=== PATIENT | male | born 1930 | race Asian ===

== ENCOUNTER 2019-08-21 13:28 | Inpatient (IN) | payer MEDICARE, MEDICAID ==
[~2019-08-21] VITALS: Ht 175.3 cm; Wt 72.6 kg
[2019-08-21] MEDS ORDERED: Solu-MEDROL 125mg Inj IVP ONE (13:30)
[2019-08-21] MEDS ORDERED: Albuterol 90mcg Inhaler 8gm INH ONE (13:30)
[2019-08-21] MEDS ORDERED: METFORMIN HCL500 M1 ORAL (13:31)
[2019-08-21] MEDS ORDERED: FUROSEMIDE20 M1 ORAL (13:31)
[2019-08-21] MEDS ORDERED: GABAPENTIN100 MG ORAL (13:31)
[2019-08-21] MEDS ORDERED: ASPIR 8181 MG ORAL (13:31)
[2019-08-21 13:45] VITALS: BP 108/68
--- NOTE | 2019-08-21 13:45 | NUR ---
ED Nurse Note: Patient BIBA by KELLY from home d/t shortness of breath that started today. Patient has home health nurses that called EMS d/t O2 sat in low to mid 80's at home. Per EMS, patient O2 low to mid 90's after placing on non-rebreather at 15 L. Patient AxO x 4, but drowsy. Skin intact. Patient on the radio electronics officer, bed in lowest position.
--- NOTE | 2019-08-21 14:29 | NUR ---
CELL [phone] JUAN MARKS WOULD LIKE UPDATES
--- NOTE | 2019-08-21 14:45 | NUR ---
ED Nurse Note: Rapid COVID-19 swab obtained right nare, sent to lab. Urine collected by straight cath, sent to lab.
--- NOTE | 2019-08-21 14:55 | NUR ---
ED Nurse Note: Blood obtained and sent to lab.
[2019-08-21 15:09] LABS: HEMOGLOBIN 13.3 G/DL (14.2-18.0); MEAN CORPUSCULAR VOLUME 121 FL (80-99); PLATELET COUNT 108 K/UL (150-450); RED BLOOD COUNT 3.64 M/UL (4.70-6.10); RED CELL DISTRIBUTION WIDTH 15.5 % (11.6-14.8)
[2019-08-21 15:09] LABS: APPEARANCE,URINE CLEAR; BILIRUBIN, URINE NEGATIVE (NEGATIVE); GLUCOSE, URINE (UA) NEGATIVE (NEGATIVE); KETONES,URINE 1+ (NEGATIVE); LEUKOCYTE ESTERASE ,URINE 1+ (NEGATIVE); NITRITE,URINE NEGATIVE (NEGATIVE); PH,URINE 5 (4.5-8.0); PROTEIN,URINE 2+ (NEGATIVE); UROBILINOGEN,URINE 8 MG/DL (0.0-1.0)
[2019-08-21 15:14] LABS: COLOR,URINE AMBER
[2019-08-21 15:18] LABS: ANION GAP 7 mmol/L (5-15); BLOOD UREA NITROGEN 24 mg/dL (7-18); CALCIUM 8.3 MG/DL (8.5-10.1); CARBON DIOXIDE 29 MMOL/L (21-32); CHLORIDE 110 MMOL/L (98-107); CREATININE 1.2 MG/DL (0.55-1.30); POTASSIUM 3.9 MMOL/L (3.5-5.1); SODIUM 146 MMOL/L (136-145)
[2019-08-21 15:24] LABS: INR 1.2 (0.9-1.1)
[2019-08-21 15:28] LABS: ALANINE AMINOTRANSFERASE 20 U/L (12-78); ALBUMIN 3.2 G/DL (3.4-5.0); ALKALINE PHOSPHATASE 78 U/L (46-116); ASPARTATE AMINO TRANSFERASE 23 U/L (15-37); BILIRUBIN,TOTAL 0.8 MG/DL (0.2-1.0); CREATINE KINASE 76 U/L (26-308); PHOSPHORUS 3.8 MG/DL (2.5-4.9)
[2019-08-21] MEDS ORDERED: Piperacillin/Tazobactam 3.375 GM in NS 110 ML IVPB ONE (15:30)
[2019-08-21] MEDS ORDERED: Azithromycin 500 MG in NS 275 ML IV ONE (15:30)
[2019-08-21] MEDS: Albuterol ud Inhalation HHN SCH (15:43)
[2019-08-21] MEDS: Ipratropium 0.02% Inh Soln 2.5ml UD HHN SCH (15:43)
[2019-08-21 15:48] VITALS: BP 104/77
--- NOTE | 2019-08-21 16:08 | NUR ---
ED Nurse Note: Patient resting in bed, no s/s of acute distress. Patient tolerating breathing treatment well.
--- NOTE | 2019-08-21 16:09 | Cardiac Electrophysiology PN ---
Subjective Subjective [id number] Objective Last 24 Hour Vital Signs Date Time Temp Pulse Resp B/P (MAP) Pulse Ox O2 Delivery O2 Flow Rate FiO2 08/21/19 15:48 97.6 78 21 104/77 98 Non-Rebreather 15.0 08/21/19 13:45 98.1 76 20 108/68 94 Non-Rebreather 15.0 08/21/19 13:45 74 20 Non-Rebreather 15.0 08/21/19 13:27 74 20 98/65 (76) 94 Non-Rebreather 15.0 Laboratory Tests Test 08/21/19 13:42 08/21/19 14:45 08/21/19 14:50 Arterial Blood pH 7.333 (7.350-7.450) Arterial Blood Partial Pressure CO2 53.6 mmHg (35.0-45.0) H Arterial Blood Partial Pressure O2 183.5 mmHg (75.0-100.0) H Arterial Blood HCO3 27.8 mmol/L (22.0-26.0) H Arterial Blood Oxygen Saturation 98.6 % (95-100) Arterial Blood Base Excess 1.0 (-2-2) Dmitry Test Positive Urine Color Sisi Urine Appearance Clear Urine pH 5 (4.5-8.0) Urine Specific [place] 1.025 (1.005-1.035) Urine Protein 2+ (NEGATIVE) H Urine Glucose (UA) Negative (NEGATIVE) Urine Ketones 1+ (NEGATIVE) H Urine Blood Negative (NEGATIVE) Urine Nitrite Negative (NEGATIVE) Urine Bilirubin Negative (NEGATIVE) Urine Ictotest Negative (NEGATIVE) Urine Urobilinogen 8 MG/DL (0.0-1.0) H Urine Leukocyte Esterase 1+ (NEGATIVE) H Urine RBC 0 /HPF (0 - 0) Urine WBC 0-2 /HPF (0 - 0) Urine Squamous Epithelial Cells None /LPF (NONE/OCC) Urine Bacteria Occasional /HPF (NONE) White Blood Count 6.0 K/UL (4.8-10.8) Red Blood Count 3.64 M/UL (4.70-6.10) L Hemoglobin 13.3 G/DL (14.2-18.0) L Hematocrit 44.0 % (42.0-52.0) Mean Corpuscular Volume 121 FL (80-99) H Mean Corpuscular Hemoglobin 36.7 PG (27.0-31.0) H Mean Corpuscular Hemoglobin Concent 30.3 G/DL (32.0-36.0) L Red Cell Distribution Width 15.5 % (11.6-14.8) H Platelet Count 108 K/UL (150-450) L Mean Platelet Volume 11.6 FL (6.5-10.1) H Neutrophils (%) (Auto) % (45.0-75.0) Lymphocytes (%) (Auto) % (20.0-45.0) Monocytes (%) (Auto) % (1.0-10.0) Eosinophils (%) (Auto) % (0.0-3.0) Basophils (%) (Auto) % (0.0-2.0) Neutrophils % (Manual) Pending Lymphocytes % (Manual) Pending Platelet Estimate Pending Platelet Morphology Pending Prothrombin Time 12.9 SEC (9.30-11.50) H Prothromb Time International Ratio 1.2 (0.9-1.1) H Activated Partial Thromboplast Time 26 SEC (23-33) Sodium Level 146 MMOL/L (136-145) H Potassium Level 3.9 MMOL/L (3.5-5.1) Chloride Level 110 MMOL/L (98-107) H Carbon Dioxide Level 29 MMOL/L (21-32) Anion Gap 7 mmol/L (5-15) Blood Urea Nitrogen 24 mg/dL (7-18) H Creatinine 1.2 MG/DL (0.55-1.30) Estimat Glomerular Filtration Rate 57.0 mL/min (>60) Glucose Level 113 MG/DL (74-106) H Lactic Acid Level 1.30 mmol/L (0.4-2.0) Calcium Level 8.3 MG/DL (8.5-10.1) L Phosphorus Level 3.8 MG/DL (2.5-4.9) Magnesium Level 2.2 MG/DL (1.8-2.4) Total Bilirubin 0.8 MG/DL (0.2-1.0) Aspartate Amino Transf (AST/SGOT) 23 U/L (15-37) Alanine Aminotransferase (ALT/SGPT) 20 U/L (12-78) Alkaline Phosphatase 78 U/L (46-116) Total Creatine Kinase 76 U/L (26-308) Troponin I 0.378 ng/mL (0.000-0.056) Pro-B-Type Natriuretic Peptide 40327 pg/mL (0-125) H Total Protein 6.5 G/DL (6.4-8.2) Albumin 3.2 G/DL (3.4-5.0) L Globulin 3.3 g/dL Albumin/Globulin Ratio 1.0 (1.0-2.7) Microbiology Date/Time Source Procedure Growth Status 08/21/19 14:10 Nasopharynx SARS-CoV-2 RdRp Gene Assay - Final Complete Juan Montes De Oca MD Aug 21, 2019 16:09
--- NOTE | 2019-08-21 16:19 | NUR ---
ED Nurse Note: Patient O2 fluctuating between high 80's and high 70's on non-rebreather mask at 15 L. RT notified to place patient on BiPAP per Dr. Hernandez. Patient BP 92/62, per Dr. Hernandez, ok to hold Lasix for now.
--- NOTE | 2019-08-21 16:50 | NUR ---
ED Nurse Note: Per Dr. Hernandez, defer giving Lasix. Patient O2 sat mid to high 80's on BiPAP, ERMD aware. No s/s of acute distress, breathing even and unlabored. Will continue to monitor closely.
[2019-08-21 17:07] VITALS: BP 106/71
--- NOTE | 2019-08-21 17:31 | NUR ---
ED Nurse Note: RT at bedside obtaining repeat ABG
--- NOTE | 2019-08-21 17:46 | Emergency Room Report ---
History of Present Illness General Chief Complaint: Dyspnea/Respdistress Source: Patient, EMS Present Illness HPI 88-year-old male presents for shortness of breath. Brought in by EMS from home. O2 sats in the 80s. History of COPD. Patient appears lethargic. Unable to provide any additional history at this time. No reported fevers or chills. No sick contacts or recent travel. No other aggravating relieving factors. No other associated symptoms Allergies: Coded Allergies: No Known Allergies (Unverified , 08/21/19) COVID-19 Screening Contact w/high risk pt: No Recent Travel to affected area: No Experienced COVID-19 symptoms?: Yes COVID-19 symptoms experienced: Shortness of Breath COVID-19 Testing performed OWNER/PHOTOGRAPHER: No Patient History Past Medical History: DM, CHF, COPD Past Surgical History: none Pertinent Family History: none Social History: Denies: smoking, alcohol use, drug use Immunizations: UTD Reviewed Nursing Documentation: PMH: Agreed; PSxH: Agreed Nursing Documentation-PMH Past Medical History: No History, Except For Hx Cardiac Problems: Yes - CHF Hx COPD: Yes Hx Diabetes: Yes Hx Cancer: Yes - LUNG Review of Systems All Other Systems: limited Physical Exam Vital Signs Date Time Temp Pulse Resp B/P (MAP) Pulse Ox O2 Delivery O2 Flow Rate FiO2 08/21/19 13:27 74 20 98/65 (76) 94 Non-Rebreather 15.0 08/21/19 13:45 98.1 08/21/19 16:24 100 Sp02 EP Interpretation: reviewed, normal General Appearance: no apparent distress, alert, GCS 15, non-toxic, lethargic Head: normocephalic, atraumatic Eyes: bilateral eye normal inspection, bilateral eye PERRL ENT: hearing grossly normal, normal pharynx, no angioedema, normal voice Neck: full range of motion, supple/symm/no masses Respiratory: chest non-tender, crackles, speaking full sentences Cardiovascular #1: regular rate, rhythm, no edema Cardiovascular #2: 2+ carotid (R), 2+ carotid (L), 2+ radial (R), 2+ radial (L) , 2+ dorsalis pedis (R), 2+ dorsalis pedis (L) Gastrointestinal: normal bowel sounds, non tender, soft, non-distended, no guarding, no rebound Rectal: deferred Genitourinary: normal inspection, no CVA tenderness Musculoskeletal: back normal, normal range of motion, gait/station normal, non- tender Neurologic: other - Lethargic Psychiatric: other - Lethargic Reflexes: 3+ bicep (R), 3+ bicep (L), 3+ tricep (R), 3+ tricep (L), 3+ knee (R) , 3+ knee (L) Skin: other - See nursing skin notes Lymphatic: no adenopathy Procedures Critical Care Time Critical Care Time i. I feel this is a highly complex case requiring extensive working including EKG/Rhythm strip, Xray/CT/US, Blood/urine lab work, repeat exams while in ED, and administration of strong opiates/narcotics for pain control, admission to hospital or close patient follow up. Total time: 60 min bedside evaluation and treatment excludes procedures (EKG). Reason for critical care: Respiratory distress Possible complications: hypotension, hypertension, TX, shock, arrhythmias, metabolic acidosis, end organ damage, respiratory failure. Interventions: Labs, EKG, chest x-ray, nebs, ABG, BiPAP, discussion with DPOA, antibiotics Course: Patient presenting with hypoxia. History of COPD and CHF. O2 sats low. Rapid COVID negative. Started on nebs. Chest x-ray confirms left-sided infiltrate. O2 sats low. Started on BiPAP. ABG shows worsening acidosis with slowly rising CO2. Consideration for intubation. Discussed with designated power of civil litigation attorney. Patient has advanced directive stating he refuses mechanical ventilation and artificial nutrition. POA signed POLST. Given antibiotics. Given Lasix Consultations: nursing staff, EMS, family Performed by: Dr Hernandez Tolerated well condition = critical j. because of unstable vital signs this patient had a condition that could potentially threaten life or limb. I feel this is a critical patient who required my full attention while patient was considered critical. Total Critical Care Time excluding procedures was greater than 60 minutes Medical Decision Making Diagnostic Impression: Primary Impression: COPD (chronic obstructive pulmonary disease) Qualified Codes: J44.9 - Chronic obstructive pulmonary disease, unspecified Additional Impressions: CHF (congestive heart failure) Qualified Codes: I50.9 - Heart failure, unspecified Pneumonia Qualified Codes: J18.9 - Pneumonia, unspecified organism ER Course Hospital Course 88-year-old male presents ED complaining of shortness of breath, O2 sat low. Differential diagnoses include: TX/unstable angina, contusion, muscle strain, PTX, rib fracture Clinical course Patient placed on stretcher. on court recording monitor. After initial history and physical I ordered labs, EKG, chest x-ray, ABG labs reviewed- no leukocytosis, hemoglobin/hematocrit stable, lecture lites okay , troponin 0.378. BNP elevated. ABG shows minimal hypercapnia. O2 sats remained low on nebulizer treatments. Rapid COVID negative. BiPAP started. O2 sats not infinitely improved with a slightly worsening ABG. Discussion for intubation. I discussed with designated power of civil litigation attorney. He presented to ED to discuss case. He brought patient's advanced directive which specifically states no mechanical ventilation or artificial nutrition. We will forego intubation. Patient will remain on BiPAP. He signed POLST. Antibiotics given. Lasix given. EKG - NSR, no twave inversions in lateral leads Chest x-ray- L sided infiltrate Case discussed with Dr. Lyles and he agreed to accept the patient to his service for further care and support Dr Perez and Dr Lamas will consult I. I feel this is a highly complex case requiring extensive working including EKG/Rhythm strip, Xray/CT/US, Blood/urine lab work, repeat exams while in ED, and administration of strong opiates/narcotics for pain control, admission to hospital or close patient follow up. Diagnosis -COPD, CHF, pneumonia admitted to SDU in critical condition Labs Test 08/21/19 13:42 08/21/19 14:45 08/21/19 14:50 08/21/19 17:28 Arterial Blood pH 7.333 (7.350-7.450) Arterial Blood Partial Pressure CO2 53.6 mmHg (35.0-45.0) Arterial Blood Partial Pressure O2 183.5 mmHg (75.0-100.0) Arterial Blood HCO3 27.8 mmol/L (22.0-26.0) Arterial Blood Oxygen Saturation 98.6 % (95-100) Arterial Blood Base Excess 1.0 (-2-2) Dmitry Test Positive Urine Color Sisi Urine Appearance Clear Urine pH 5 (4.5-8.0) Urine Specific [place] 1.025 (1.005-1.035) Urine Protein 2+ (NEGATIVE) Urine Glucose (UA) Negative (NEGATIVE) Urine Ketones 1+ (NEGATIVE) Urine Blood Negative (NEGATIVE) Urine Nitrite Negative (NEGATIVE) Urine Bilirubin Negative (NEGATIVE) Urine Ictotest Negative (NEGATIVE) Urine Urobilinogen 8 MG/DL (0.0-1.0) Urine Leukocyte Esterase 1+ (NEGATIVE) Urine RBC 0 /HPF (0 - 0) Urine WBC 0-2 /HPF (0 - 0) Urine Squamous Epithelial Cells None /LPF (NONE/OCC) Urine Bacteria Occasional /HPF (NONE) White Blood Count 6.0 K/UL (4.8-10.8) Red Blood Count 3.64 M/UL (4.70-6.10) Hemoglobin 13.3 G/DL (14.2-18.0) Hematocrit 44.0 % (42.0-52.0) Mean Corpuscular Volume 121 FL (80-99) Mean Corpuscular Hemoglobin 36.7 PG (27.0-31.0) Mean Corpuscular Hemoglobin Concent 30.3 G/DL (32.0-36.0) Red Cell Distribution Width 15.5 % (11.6-14.8) Platelet Count 108 K/UL (150-450) Mean Platelet Volume 11.6 FL (6.5-10.1) Neutrophils (%) (Auto) % (45.0-75.0) Lymphocytes (%) (Auto) % (20.0-45.0) Monocytes (%) (Auto) % (1.0-10.0) Eosinophils (%) (Auto) % (0.0-3.0) Basophils (%) (Auto) % (0.0-2.0) Differential Total Cells Counted 100 Neutrophils % (Manual) 64 % (45-75) Lymphocytes % (Manual) 24 % (20-45) Monocytes % (Manual) 8 % (1-10) Eosinophils % (Manual) 0 % (0-3) Basophils % (Manual) 0 % (0-2) Band Neutrophils 4 % (0-8) Nucleated Red Blood Cells 1 /100 WBC Platelet Estimate Decreased Platelet Morphology Normal Anisocytosis 1+ Prothrombin Time 12.9 SEC (9.30-11.50) Prothromb Time International Ratio 1.2 (0.9-1.1) Activated Partial Thromboplast Time 26 SEC (23-33) Sodium Level 146 MMOL/L (136-145) Potassium Level 3.9 MMOL/L (3.5-5.1) Chloride Level 110 MMOL/L (98-107) Carbon Dioxide Level 29 MMOL/L (21-32) Anion Gap 7 mmol/L (5-15) Blood Urea Nitrogen 24 mg/dL (7-18) Creatinine 1.2 MG/DL (0.55-1.30) Estimat Glomerular Filtration Rate 57.0 mL/min (>60) Glucose Level 113 MG/DL (74-106) Lactic Acid Level 1.30 mmol/L (0.4-2.0) Calcium Level 8.3 MG/DL (8.5-10.1) Phosphorus Level 3.8 MG/DL (2.5-4.9) Magnesium Level 2.2 MG/DL (1.8-2.4) Total Bilirubin 0.8 MG/DL (0.2-1.0) Aspartate Amino Transf (AST/SGOT) 23 U/L (15-37) Alanine Aminotransferase (ALT/SGPT) 20 U/L (12-78) Alkaline Phosphatase 78 U/L (46-116) Total Creatine Kinase 76 U/L (26-308) Troponin I 0.378 ng/mL (0.000-0.056) Pro-B-Type Natriuretic Peptide 86949 pg/mL (0-125) Total Protein 6.5 G/DL (6.4-8.2) Albumin 3.2 G/DL (3.4-5.0) Globulin 3.3 g/dL Albumin/Globulin Ratio 1.0 (1.0-2.7) EKG Diagnostic Results Rate: normal Rhythm: NSR ST Segments: no acute changes ASA given to the pt in ED: No Rhythm Strip Diag. Results EP Interpretation: yes Rhythm: NSR, no PVC's, no ectopy Chest X-Ray Diagnostic Results Chest X-Ray Diagnostic Results : Chest X-Ray Ordered: Yes # of Views/Limited/Complete: 1 View Indication: Shortness of Breath EP Interpretation: Yes Interpretation: no pneumothorax, other - The wires, consolidation Impression: Other - Pneumonia Electronically Signed by: Electronically signed by Alexandre Hernandez MD Last Vital Signs Date Time Temp Pulse Resp B/P (MAP) Pulse Ox O2 Delivery O2 Flow Rate FiO2 08/21/19 17:07 75 24 106/71 89 Bi-pap 100 08/21/19 15:48 97.6 15.0 Status: improved Disposition: ADMITTED INPATIENT Condition: Critical Referrals: NON PHYSICIAN (PCP) Alexandre Hernandez MD Aug 21, 2019 17:46
--- NOTE | 2019-08-21 17:58 | NUR ---
ED Nurse Note: Patient resting in bed. VSS. O2 sat currently 88% on BiPAP. Dr. Hernandez spoke to patient's nephew Cj over the phone regarding plan of care.
--- NOTE | 2019-08-21 18:10 | NUR ---
ED Nurse Note: Patient's nephew Cj at bedside, discussed and signed POLST with Dr. Hernandez.
[2019-08-21 18:36] VITALS: BP 100/62
--- NOTE | 2019-08-21 19:20 | NUR ---
HAND-OFF: Report given to Joan TAVAREZ.
--- NOTE | 2019-08-21 19:46 | NUR ---
ED Nurse Note: report given to RN on SDU unit
[2019-08-21 19:50] VITALS: BP 98/67
--- NOTE | 2019-08-21 20:20 | NUR ---
ER DISCHARGE NOTE: Patient is cleared to be discharged to SDU per ERMD, pt is aox4, 97% on room air, with stable vital signs. pt was able to verbalize understanding. pt took all belongings. Pt transferred to unit with 1 human factors advisor lead and 1 RN on monitor. report given to DAYSI Razo on SDU unit.
--- NOTE | 2019-08-21 20:30 | NUR ---
NURSE NOTES: received pt from NOEL Mercado RN., pt is awake and AO x4 fatigue, sometimes forgetful. BP119/78 T 96.3 O2sat with bipap 100% HR 71. pt states no pain at this time. pictures taken for the wound (sacral, bilateral heels) protection applied. bear hugger applied to elevate the temperature. Edema +3 noted on bilateral legs, Edema 2+ noted on bilateral arms. pt is unsure what doses for home medicine metformin and gabapentin. right hand IV 20G noted intact, clean, and patent. 2 yellow rings, denture up and lower, one necklace (pt has it on). call light within reach. bed at the lowest position, alarmed, and locked. will continue to monitor pt with plan of care.
--- NOTE | 2019-08-21 21:02 | NUR ---
NURSE NOTES: Spoke with Dr. Lopez regarding the admission order. per Dr. Lopez, call back after 30 minutes. noted and will carry on.
--- NOTE | 2019-08-21 21:17 | NUR ---
NURSE NOTES: non-admin NS @200ml/hr that is scheduled at 2029 because order is from ER
--- NOTE | 2019-08-21 21:42 | NUR ---
NURSE NOTES: left voice mail to Dr. Lopez regarding admission order. will wait for call back.
--- NOTE | 2019-08-21 22:00 | NUR ---
NURSE NOTES: pt's temperature went up to 97 at this time. VSS. call light within reach.
--- NOTE | 2019-08-21 22:50 | NUR ---
NURSE NOTES: Dr. Lopez aware pt has CHF and NS @ 75ml/hr due to low BP at this moment.
--- NOTE | 2019-08-21 23:22 | NUR ---
NURSE NOTES: spoke with Sugey curran, that need to clarification regarding metformin and gabapentin. would not administer to pt until it gets clarified. pt is unsure how many dose pt is taking.
[2019-08-22] VITALS: BP 98/66
--- NOTE | 2019-08-22 01:30 | Consultation ---
DATE OF CONSULTATION: 08/21/2019 CARDIOLOGY CONSULTATION CONSULTING PHYSICIAN: Juan Montes De Oca M.D. REFERRING PHYSICIAN: Devon Lyles D.O. REASON FOR CONSULTATION: Shortness of breath and congestive heart failure and elevated troponin. HISTORY OF PRESENT ILLNESS: The patient is an 88-year-old gentleman with history of hypertension and congestive heart failure as well as coronary artery disease with history of prior coronary artery bypass graft, presents into the emergency room with increasing shortness of breath. The patient was found to have bilateral lower extremity edema and was very short of breath. His BNP was also more than 1000. Troponin was also elevated. His rapid COVID test was negative. The patient was brought in from home with shortness of breath and saturation was 88% on room air, is seen. The patient needs 15 liters of nasal cannula to increase his saturation to 94%. REVIEW OF SYSTEMS: Negative other than what is mentioned in the history of present illness. PAST MEDICAL HISTORY: As mentioned above. FAMILY HISTORY: Noncontributory. SOCIAL HISTORY: He lives at home. He does not smoke or drink alcohol. PHYSICAL EXAMINATION: VITAL SIGNS: Show blood pressure of 108/68, pulse 76, respirations 18, and temperature 98.1. HEAD AND NECK: Positive JVD. LUNGS: Coarse rhonchi. Basilar rales. CARDIOVASCULAR: Shows regular S1 and S2 with no gallop. Sternal scar is intact. ABDOMEN: Soft. EXTREMITIES: Bilateral 2+ pitting edema. LABORATORY AND DIAGNOSTIC DATA: His labs show white count of 6, hemoglobin of 13, hematocrit of 44, and platelet count of 108. Sodium is 142, potassium 3.9, BUN of 24, creatinine 1.2, and glucose of 113. Troponin 0.378 and BNP is more than 10,000. ASSESSMENT AND PLAN: 1. Congestive heart failure exacerbation with BNP of more than 10,000. The patient has bilateral lower extremity edema and volume overload. We will start the patient on Lasix 40 mg IV b.i.d. We will watch the patient closely with an echocardiogram for ejection fraction and wall motion abnormality. 2. Coronary artery disease with history of coronary artery bypass graft and elevated troponin. We will completely rule out [place] protocol. His EKG shows ST-T wave abnormalities. The patient is already on aspirin and that would be continued. 3. Diabetes, on metformin. 4. Neuropathy, on gabapentin. Thank you very much for allowing me to participate in the care of this patient. Please do not hesitate to contact me for any questions regarding my evaluation. Sincerely, Juan Montes De Oca M.D. DR: JOSEPHINE JOB#: [id number] CC:
[2019-08-22 04:00] VITALS: BP 91/68
--- NOTE | 2019-08-22 06:00 | NUR ---
NURSE NOTES: oral care given, repositioned pt, call light within reach. O2sat is at 100%. pt states no pain at this time.
[2019-08-22 06:15] LABS: HEMATOCRIT 38.9 % (42.0-52.0); HEMOGLOBIN 11.6 G/DL (14.2-18.0); MEAN CORPUSCULAR VOLUME 121 FL (80-99); PLATELET COUNT 91 K/UL (150-450); RED CELL DISTRIBUTION WIDTH 15.6 % (11.6-14.8); WHITE BLOOD COUNT 4.1 K/UL (4.8-10.8)
[2019-08-22 06:29] LABS: ANION GAP 8 mmol/L (5-15); BLOOD UREA NITROGEN 27 mg/dL (7-18); CALCIUM 7.9 MG/DL (8.5-10.1); CARBON DIOXIDE 28 MMOL/L (21-32); CHLORIDE 112 MMOL/L (98-107); CHOLESTEROL 86 MG/DL (< 200); CREATININE 1.3 MG/DL (0.55-1.30); HDL CHOLESTEROL 40 MG/DL (40-60); POTASSIUM 4.8 MMOL/L (3.5-5.1); SODIUM 147 MMOL/L (136-145); TRIGLYCERIDES 40 MG/DL (30-150)
--- NOTE | 2019-08-22 06:41 | NUR ---
NURSE NOTES: spoke with Cj Ho pt's Nephew regarding medicine list for the pt. he will call us back once he figures out the medicine list and dosage. will wait for call back
--- NOTE | 2019-08-22 07:30 | NUR ---
HAND-OFF: Report given to Shea TAVAREZ. pt is stable condition, endorsed plan of care
--- NOTE | 2019-08-22 07:48 | NUR ---
NURSE NOTES: Received pt from Danni TAVAREZ., pt is awake and AO x4 fatigue. Pt with bipap. Lety hugger is noted. Two IV sites are intact noted. pt is not in distress status. Call light within reach. Bed at the lowest position, alarmed, and locked. will continue to monitor pt with plan of care.
[2019-08-22 08:00] VITALS: BP 91/64
--- NOTE | 2019-08-22 08:15 | Diagnostic Imaging Report ---
EXAM: XR Chest, 1 View CLINICAL HISTORY: COPD TECHNIQUE: Frontal view of the chest. COMPARISON: Chest x-ray dated 08/21/19 FINDINGS: Lungs: Mild pulmonary vascular congestion. Sub-segmental atelectasis versus infiltrate in the left lung base. Mildly hyperinflated lungs. Pleural space: Small right pleural effusion, more prominent compared to the prior exam. Heart: Unremarkable. No cardiomegaly. Mediastinum: Unremarkable. Bones/joints: Status post median sternotomy. Degenerative changes throughout the visualized spine and shoulder joints. Vasculature: Atherosclerotic calcifications within the aortic arch. Tubes, lines and devices: Telemetry leads overlie the thorax. IMPRESSION: 1. Small right pleural effusion, more prominent compared to the prior exam. 2. Mild pulmonary vascular congestion. 3. Sub-segmental atelectasis versus infiltrate in the left lung base. 4. Mildly hyperinflated lungs.
[2019-08-22] MEDS ORDERED: metFORMIN 500mg tab ORAL SCH (09:00)
[2019-08-22] MEDS ORDERED: Heparin 5000 units/ml inj SUBQ SCH (09:00)
[2019-08-22] MEDS ORDERED: Aspirin Baby 81mg ORAL SCH (09:00)
--- NOTE | 2019-08-22 09:22 | NUR ---
NURSE NOTES: Dr. Lamas made aware that plt is 91 today and SBP is on the 90s. Dr Lamas ordered to dc Heparin 5000units, Hold Lasix if SBP < 110. Ok to give Asprin 81mg this morning.will continue to monitor.
[2019-08-22 12:00] VITALS: BP 93/65
[2019-08-22] MEDS: cefTRIAXone 1 GM in D5W 55 ML IVPB SCH (13:34)
[2019-08-22] MEDS: Azithromycin 250mg tab ORAL SCH (13:36)
[2019-08-22] MEDS ORDERED: DRONABINOL10 MG PO (15:17)
[2019-08-22] MEDS ORDERED: FUROSEMIDE40 MG ORAL (15:17)
[2019-08-22] MEDS ORDERED: DOCUSATE SODIU100 MG ORAL (15:17)
[2019-08-22] MEDS ORDERED: LYRICA75 M1 ORAL (15:17)
[2019-08-22] MEDS ORDERED: VITAMIN C500 M1 ORAL (15:17)
[2019-08-22] MEDS ORDERED: PRAVASTATIN SOD20 M1 ORAL (15:17)
[2019-08-22] MEDS ORDERED: VITAMIN B-12500 MC2 PO (15:17)
[2019-08-22] MEDS ORDERED: Docusate 100mg cap ORAL SCH (15:30)
[2019-08-22 16:00] VITALS: BP 105/65
--- NOTE | 2019-08-22 16:15 | History and Physical Report ---
DATE OF ADMISSION: 08/21/2019 DATE AND TIME SEEN: 08/22/2019 at 9 a.m. CONSULTANTS: 1. Juan Montes De Oca MD. 2. Deejay Nguyen MD. 3. Kin Maxwell MD. CHIEF COMPLAINT: Respiratory failure, pneumonia, elevated troponin. BRIEF HISTORY: This is an 88-year-old male, who presents to [place] last night with history of increased shortness of breath and then found to have pneumonia. Actually BiPAP, but due to his code status as per family, patient was not intubated. Patient currently slight short of breath, on BiPAP, sleepy, not talking much. REVIEW OF SYSTEMS: Unavailable. PAST MEDICAL HISTORY: COPD, CHF. PAST SURGICAL HISTORY: Unknown. ALLERGIES: Denies. MEDICATIONS: Include furosemide, heparin, metformin, gabapentin, Zosyn, albuterol. SOCIAL HISTORY: Unable to obtain secondary to patient's condition. OBJECTIVE: GENERAL: On BiPAP, sleepy in bed, not talking much. Slight short of breath. VITAL SIGNS: Temperature is 97, pulse 84, respirations 14, blood pressure 91/64. CARDIOVASCULAR: S1, S2 normal. No murmur. LUNGS: Poor air exchange. ABDOMEN: Bowel sounds distant. EXTREMITIES: No cyanosis or edema. NEUROLOGIC: Patient is flaccid in bed, not following directions. LABORATORY AND DIAGNOSTIC DATA: Labs at this time show white count 4.1, hemoglobin and hematocrit 11/38, and platelets 91. BMP shows sodium 147, chloride 112, BUN 27, glucose 153, calcium 7.9. [place] 0[place] [address]. Urinalysis show 1+ ketone, 2+ protein. ASSESSMENT: 1. Respiratory failure. 2. Pneumonia. 3. Anemia. 4. Thrombocytopenia. 5. Elevated troponin. 6. COPD. 7. CHF. PLAN: 1. BiPAP. 2. Pulmonary treatment. 3. Antibiotics per Infectious Disease. 4. Blood pressure, pain control. 5. Resume home medications. 6. We will add Hematology evaluation by Dr. Grimm. 7. We will continue to follow this patient. Devon Lyles D.O. DR: MEGAN JOB#: [id number] CC:
[2019-08-22] MEDS: Lyrica 50mg cap ORAL SCH (17:16)
--- NOTE | 2019-08-22 18:00 | Consultation ---
DATE OF CONSULTATION: 08/22/2019 PULMONARY CONSULTATION HISTORY OF PRESENT ILLNESS: This is an 88-year-old male who was admitted to the hospital with respiratory failure. The patient has history of hypertension, CHF, CAD who came to the hospital with shortness of breath. He was found to have congestive heart failure. He was also found to have a troponin leak. His initial rapid COVID test has been negative. The patient was saturating poorly and required to be placed on a BiPAP. His code status is DNR. At this point in time, the patient unable to provide any further history. MEDICATIONS: List of medications includes Rocephin, Zosyn, albuterol, aspirin, azithromycin, Lasix, Neurontin, metformin, he also received a single dose of Solu-Medrol yesterday. PAST MEDICAL HISTORY: Notable for CHF, CAD, hypertension, diabetes mellitus, DNR status REVIEW OF SYSTEMS: Not reliable. PHYSICAL EXAMINATION: GENERAL: Reveals 88-year-old male. VITAL SIGNS: Blood pressure is 90/60, heart rate 80, respiratory rate 20, he is on BiPAP. FiO2 is fluctuating between 55 and 80%. HEENT: Unremarkable. CHEST: Clear breath sounds bilaterally with decreased breath sounds in both lung bases and bibasilar crackles. HEART: Normal heart sounds. ABDOMEN: Soft. EXTREMITIES: There is 2+ edema. LABORATORY AND DIAGNOSTIC DATA: White count of 4.1, hemoglobin 11.6, platelet count is 91,000. ABG 7.36, pCO2 40, PO2 79. Creatinine 1.3, BUN 27. ProBNP is elevated. Troponin 0.37. Coags are negative. Urinalysis negative. X-ray chest shows small right pleural effusion, vascular congestion, and atelectasis. IMPRESSION: 1. Decompensated congestive heart failure. 2. DNR status. 3. Diabetes mellitus. 4. . 5. Respiratory failure. DISCUSSION: Admit to the hospital. Continue medications. Diet as tolerated. Broad-spectrum antibiotics. Provide respirator support with BiPAP. We will follow carefully. Sujit Lamas M.D. DR: Alfonso JOB#: [id number] CC:
--- NOTE | 2019-08-22 19:11 | NUR ---
HAND-OFF: Report given to DAYSI Razo. Patient is stable. NAD.
--- NOTE | 2019-08-22 19:12 | NUR ---
NURSE NOTES: received pt from Lorna TAVAREZ., pt is AOx4 at this time. pt is on high [id number]% NC. no respiratory distress noted. O2 sat is at 93%. pt states no pain at this time. condom cath is on, intact, clean, and patent. right hand 20g Left FA 20G Iv site clean, patent, and intact. call light within reach. bed at the lowest position, alarmed, and locked. will continue to monitor pt with plan of care.
--- NOTE | 2019-08-22 19:12 | NUR ---
NURSE NOTES: received pt from Shea TAVAREZ . and Madelyn TAVAREZ., pt is awake and AO x4. B71. pt states no pain at this time. pictures taken for the wound (sacral, bilateral heels) protection applied. bear hugger applied to elevate the temperature. Edema +3 noted on bilateral legs, Edema 2+ noted on bilateral arms. pt is unsure what doses for home medicine metformin and gabapentin. right hand IV 20G noted intact, clean, and patent. 2 yellow rings, denture up and lower, one necklace (pt has it on). call light within reach. bed at the lowest position, alarmed, and locked. will continue to monitor pt with plan of care. Addendum: 08/22/19 at 1933 by MADELYN FITCH RN wrong info
[2019-08-22 20:00] VITALS: BP 96/66
[2019-08-22] MEDS: Dronabinol 2.5mg Cap ORAL SCH (20:51)
[2019-08-23] VITALS: BP 114/70
--- NOTE | 2019-08-23 02:00 | NUR ---
NURSE NOTES: oral care given, new gown provided, cleaned pt. no active bleeding noted. pt states no pain at this time. repositioned pt Q 2hrs. call light within reach. no SOB noted. will monitor closely.
[2019-08-23 04:00] VITALS: BP 109/72
--- NOTE | 2019-08-23 05:06 | Diagnostic Imaging Report ---
EXAM: XR Chest, 1 View CLINICAL HISTORY: SOB TECHNIQUE: Frontal view of the chest. COMPARISON: No relevant prior studies available. FINDINGS: Opacification of the left thoracic base, likely reflects a combination of a small pleural effusion and associated atelectasis. Would also question presence of consolidation/pneumonitis. Suture line to the right upper lung, presumably for partial pneumonectomy Operative changes of the heart/mediastinum consistent with coronary artery bypass graft. Intact sternal wires. Degenerative changes of the shoulders and the spine IMPRESSION: Left basilar opacification, likely combination of pleural fluid and atelectasis. Would also question presence of consolidation/pneumonitis. Postoperative heart/mediastinum and right upper lung.
[2019-08-23 06:14] LABS: HEMOGLOBIN 12.3 G/DL (14.2-18.0); MEAN CORPUSCULAR VOLUME 120 FL (80-99); PLATELET COUNT 75 K/UL (150-450); RED BLOOD COUNT 3.33 M/UL (4.70-6.10); RED CELL DISTRIBUTION WIDTH 16.1 % (11.6-14.8)
[2019-08-23 06:43] LABS: ANION GAP 9 mmol/L (5-15); BLOOD UREA NITROGEN 26 mg/dL (7-18); CALCIUM 8.4 MG/DL (8.5-10.1); CARBON DIOXIDE 27 MMOL/L (21-32); CHLORIDE 110 MMOL/L (98-107); CREATININE 1.3 MG/DL (0.55-1.30); POTASSIUM 4.6 MMOL/L (3.5-5.1); SODIUM 146 MMOL/L (136-145)
--- NOTE | 2019-08-23 07:08 | NUR ---
NURSE NOTES: received patient report from mandy bower. patient is on bed awake, comfortably eating breakfast. on high flow oxygen. tolerating well, sats 91-93%. no arrythmias reported last night. bed is low and locked for safety. will follow plan of care.
--- NOTE | 2019-08-23 07:10 | NUR ---
HAND-OFF: Report given to Shea TAVAREZ., pt remains stable condition, endorsed plan of care.
--- NOTE | 2019-08-23 07:10 | Consultation ---
History of Present Illness General Chief Complaint: Dyspnea/Respdistress Present Illness Allergies: Coded Allergies: No Known Allergies (Unverified , 08/21/19) Medication History Scheduled Ascorbic Acid* (Vitamin C*), 1,000 MG ORAL DAILY, (Reported) Aspirin* (Aspir 81*), 81 MG ORAL DAILY, (Reported) Cyanocobalamin (Vitamin B-12) (Vitamin B-12), 500 MCG PO DAILY, (Reported) Docusate Sodium* (Docusate Sodium*), 100 MG ORAL PRN, (Reported) Dronabinol (Dronabinol), 2.5 MG PO BID, (Reported) Furosemide* (Lasix*), 40 MG ORAL DAILY, (Reported) Gabapentin* (Gabapentin*), Unknown Dose ORAL THREE TIMES A DAY, (Reported) Metformin Hcl* (Metformin Hcl*), Unknown Dose ORAL DAILY, (Reported) Pravastatin Sod* (Pravastatin Sod*), 80 MG ORAL BEDTIME, (Reported) Pregabalin* (Lyrica*), 100 MG ORAL BID, (Reported) Discontinued Medications Furosemide* (Lasix*), Unknown Dose ORAL DAILY, (Reported) Discontinued Reason: Prescription changed Patient History Healthcare decision maker Resuscitation status Advanced Directive on File Physical Exam Last 24 Hour Vital Signs Date Time Temp Pulse Resp B/P (MAP) Pulse Ox O2 Delivery O2 Flow Rate FiO2 08/23/19 04:00 97.5 72 24 109/72 (84) 93 08/23/19 04:00 40.0 100 08/23/19 04:00 Bi-pap 08/23/19 03:36 68 08/23/19 03:25 40.0 100 08/23/19 00:00 97.5 74 20 114/70 (85) 93 08/23/19 00:00 Bi-pap 08/23/19 00:00 40.0 100 08/23/19 00:00 70 08/22/19 23:46 40.0 100 08/22/19 20:31 40.0 100 08/22/19 20:00 98.1 74 17 96/66 (76) 93 08/22/19 20:00 Bi-pap 08/22/19 20:00 40.0 100 08/22/19 19:29 69 08/22/19 16:03 76 08/22/19 16:00 97.0 77 17 105/65 (78) 95 08/22/19 16:00 Bi-pap 08/22/19 15:06 40.0 100 08/22/19 14:59 40.0 100 08/22/19 13:15 40.0 100 08/22/19 12:00 Bi-pap 08/22/19 12:00 80 08/22/19 12:00 75 08/22/19 12:00 97.3 80 16 93/65 (74) 98 08/22/19 11:25 77 17 100 55 08/22/19 08:00 92 08/22/19 08:00 Bi-pap 08/22/19 08:00 97.7 84 14 91/64 (73) 100 08/22/19 08:00 100 08/22/19 07:11 84 18 100 70 Intake and Output 08/22/19 08/23/19 19:00 07:00 Intake Total 410 ml 100 ml Output Total 550 ml 600 ml Balance -140 ml -500 ml Intake Oral 300 ml 100 ml IV Total 110 ml Output Urine Total 550 ml 600 ml Laboratory Tests Test 08/22/19 07:48 08/23/19 05:12 Arterial Blood pH 7.360 (7.350-7.450) Arterial Blood Partial Pressure CO2 40.1 mmHg (35.0-45.0) Arterial Blood Partial Pressure O2 79.8 mmHg (75.0-100.0) Arterial Blood HCO3 22.1 mmol/L (22.0-26.0) Arterial Blood Oxygen Saturation 94.7 % (95-100) L Arterial Blood Base Excess -3.0 (-2-2) L Dmitry Test Positive White Blood Count 6.0 K/UL (4.8-10.8) Red Blood Count 3.33 M/UL (4.70-6.10) L Hemoglobin 12.3 G/DL (14.2-18.0) L Hematocrit 40.0 % (42.0-52.0) L Mean Corpuscular Volume 120 FL (80-99) H Mean Corpuscular Hemoglobin 36.8 PG (27.0-31.0) H Mean Corpuscular Hemoglobin Concent 30.6 G/DL (32.0-36.0) L Red Cell Distribution Width 16.1 % (11.6-14.8) H Platelet Count 75 K/UL (150-450) L Mean Platelet Volume 13.1 FL (6.5-10.1) H Neutrophils (%) (Auto) % (45.0-75.0) Lymphocytes (%) (Auto) % (20.0-45.0) Monocytes (%) (Auto) % (1.0-10.0) Eosinophils (%) (Auto) % (0.0-3.0) Basophils (%) (Auto) % (0.0-2.0) Sodium Level 146 MMOL/L (136-145) H Potassium Level 4.6 MMOL/L (3.5-5.1) Chloride Level 110 MMOL/L (98-107) H Carbon Dioxide Level 27 MMOL/L (21-32) Anion Gap 9 mmol/L (5-15) Blood Urea Nitrogen 26 mg/dL (7-18) H Creatinine 1.3 MG/DL (0.55-1.30) Estimat Glomerular Filtration Rate 52.0 mL/min (>60) Glucose Level 97 MG/DL (74-106) Calcium Level 8.4 MG/DL (8.5-10.1) L Height (Feet): 5 Height (Inches): 9.00 Weight (Pounds): 160 Medications Current Medications Medications (Trade) Dose Ordered Sig/July Route PRN Reason Start Time Stop Time Status Last Admin Dose Admin Ascorbic Acid (Vitamin C) 1,000 mg DAILY ORAL 08/23/19 09:00 09/22/19 08:59 Aspirin (Ecotrin) 81 mg DAILY ORAL 08/23/19 09:00 10/07/19 08:59 Azithromycin (Zithromax) 250 mg DAILY ORAL 08/22/19 12:30 08/29/19 12:29 08/22/19 13:36 Ceftriaxone Sodium 1 gm/ Dextrose 55 ml @ 110 mls/hr Q24H IVPB 08/22/19 12:30 08/29/19 12:29 08/22/19 13:34 Cyanocobalamin (Vitamin B-12) 500 mcg DAILY ORAL 08/23/19 09:00 09/22/19 08:59 Docusate Sodium (Colace) 100 mg PRN ORAL 08/22/19 15:30 09/21/19 15:29 Dronabinol (Marinol) 2.5 mg BID ORAL 08/22/19 20:00 11/20/19 19:59 08/22/19 20:51 Furosemide (Lasix) 40 mg EVERY 12 HOURS IV 08/22/19 21:00 09/20/19 20:59 Gabapentin (Neurontin) 300 mg THREE TIMES A DAY PRN ORAL For Pain 08/21/19 23:15 09/20/19 23:14 Pravastatin Sodium (Pravachol) 80 mg BEDTIME ORAL 08/22/19 21:00 09/21/19 20:59 08/22/19 20:50 Pregabalin (Lyrica) 100 mg BID ORAL 08/22/19 18:00 09/21/19 17:59 08/22/19 17:16 Assessment/Plan Assessment/Plan: Hematology Consultation REQ MD: Devon Lyles DOS: 08/23/2019 RFC Low platelets HPI 88-year-old male presents for shortness of breath. Brought in by EMS from home. O2 sats in the 80s. History of COPD. Patient appears lethargic. Unable to provide any additional history at this time. No reported fevers or chills. No sick contacts or recent travel. No other aggravating relieving factors. No other associated symptoms Seen by pulm and cards, recs noted, started on diuresis, plt count remains low and heme consulted for eval Coded Allergies: No Known Allergies (Unverified , 08/21/19) Contact w/high risk pt: No Recent Travel to affected area: No Experienced COVID-19 symptoms?: Yes COVID-19 symptoms experienced: Shortness of Breath COVID-19 Testing performed WREATH MAKER: No Past Medical History: DM, CHF, COPD Past Surgical History: none Pertinent Family History: none Social History: Denies: smoking, alcohol use, drug use Immunizations: UTD All Other Systems: limited Physical Exam Vitals: reviewed, normal General: no apparent distress, alert, GCS 15, non-toxic, lethargic HEENT hearing grossly normal, normal pharynx, no angioedema, normal voice Neck: full range of motion, supple/symm/no masses Respiratory: chest non-tender, crackles Cardiovascular: regular rate, rhythm, no edema GI: normal bowel sounds, non tender, soft, non-distended, no guarding, no rebound Neurologic: other - Lethargic Lymphatic: no adenopathy Labs noted Imaging reviewed Assessment and Recs # Lung mass/nodules -- patient says has a hx of malignancy in the past, but stage unknown, no intervention --> once more stable, ct of chest, however doesn't need to be done acutely --> as per pulm eval prn # Thrombocytopenia reactive v medications related --> plt trend 90-->75 --> hep and hiv panel ordered --> us of the abdomen as has not been done before # COPD (chronic obstructive pulmonary disease) # CHF (congestive heart failure) --> bnp initially >87680 --> per Dr. Montes De Oca, diuresis with lasix bid # Troponin elevation with cad and cabg --> per cards # Hypoxia -- on bipap # DM2 # DNR Appreciate consultation and dw Rn Ramos Grimm MD Aug 23, 2019 07:10
[2019-08-23 08:00] VITALS: BP 105/68
[2019-08-23] MEDS: Lyrica 50mg cap ORAL SCH ×2 (08:09→16:59)
[2019-08-23] MEDS: Ascorbic Acid 500mg tab ORAL SCH (08:09)
[2019-08-23] MEDS: Dronabinol 2.5mg Cap ORAL SCH ×2 (08:10→16:59)
[2019-08-23] MEDS: Azithromycin 250mg tab ORAL SCH (08:10)
[2019-08-23] MEDS: Vitamin B-12 500mcg tab ORAL SCH (08:10)
--- NOTE | 2019-08-23 08:31 | Consultation ---
DATE OF CONSULTATION: 08/20/2019 INFECTIOUS DISEASES CONSULTATION This consult is for coverage of Dr. Maxwell. CONSULTING PHYSICIAN: Brannon Lange MD PRIMARY ATTENDING PHYSICIAN: Devon Lyles DO REASON FOR CONSULTATION: COPD, pneumonia, heart failure. HISTORY OF PRESENT ILLNESS: This is an 88-year-old male admitted yesterday from home complaining of shortness of breath, had decrease in O2 saturation. COVID-19 test was negative. The patient was admitted to step-down unit and started on BiPAP. PAST MEDICAL HISTORY: Significant for COPD, diabetes mellitus, hypertension, diastolic CHF, neuropathy, history of cardiac bypass. ALLERGIES: No known drug allergies. MEDICATIONS: Got a dose of Zosyn and azithromycin in the ER. Getting metformin, aspirin, Lasix, gabapentin. SOCIAL HISTORY: Single, ex-smoker, no drug or alcohol abuse. CODE STATUS: DNR. REVIEW OF SYSTEMS: The patient has no fever, no chills. Has shortness of breath. No significant cough. No nausea. No vomiting. No diarrhea. No problem passing urine. PHYSICAL EXAMINATION: VITAL SIGNS: Temperature 97.9, the patient is on warming blanket. Pulse 77, . GENERAL: The patient seems to be thin. HEAD AND NECK: The patient on BiPAP. HEART: Normal rate, scar of bypass surgery. LUNGS: Decreased sounds on expansion. ABDOMEN: Soft and nontender. EXTREMITIES: Edema of legs. NEUROLOGIC: Awake, alert, responsive. LABORATORY AND DIAGNOSTIC DATA: WBC 4.1, hemoglobin 11.6, hematocrit 38.9, and platelets 91. Sodium 147, potassium 4.8, chloride 112, bicarb 28, BUN 27, creatinine 1.3, gl . Troponin is elevated 0.378. BNP elevated at 11,312. Blood gas showed pH of 7.36, pCO2 40.1, pO2 of 79.8. COVID-19 test is negative. Chest x-ray showed slight pleural effusion more prominent, mild congestion, subsegmental atelectasis versus infected left lung base, mildly hyperinflated. IMPRESSION: 1. Pneumonia. 2. COPD. 3. Respiratory failure with hypercapnia and hypoxemia. 4. Diabetes mellitus. 5. Diastolic CHF with ejection fraction of 55% but he has LV diastolic dysfunction grade 1 with moderate tricuspid regurgitation and right ventricular hypokinesis, aortic stenosis. 6. Thrombocytopenia. RECOMMENDATION: We will continue with antibiotics, ceftriaxone and Zithromax. We will follow up the cultures. At the end of my exam, I thank Dr. Devon Lyles for involving me in the care of this patient. Brannon Lange M.D. DR: Sherley JOB#: [id number] CC: AZRA
[2019-08-23] MEDS ORDERED: Aspirin EC 81mg tab ORAL SCH (09:00)
--- NOTE | 2019-08-23 09:49 | NUR ---
NURSE NOTES: dr de la cruz made aware that patient is + for acute DVT & SVT on the Left femoral. ordered "ok to continue". will continue to care and monitor.
--- NOTE | 2019-08-23 10:00 | NUR ---
NURSE NOTES: dr de la cruz called back and ordered to start lovenox 1mg/kg BID. Dr de la cruz is also aware that Plt is downtrending and is 75 today. will take note and carry out.
--- NOTE | 2019-08-23 10:31 | Pulmonology Progress Note ---
Subjective Interval Events: awake and responsive Constitutional: Reports: no symptoms HEENT: Repors: no symptoms Respiratory: Reports: no symptoms Cardiovascular: Reports: no symptoms Gastrointestinal/Abdominal: Reports: no symptoms Allergies: Coded Allergies: No Known Allergies (Unverified , 08/21/19) Objective Last 24 Hour Vital Signs Date Time Temp Pulse Resp B/P (MAP) Pulse Ox O2 Delivery O2 Flow Rate FiO2 08/23/19 08:00 40.0 100 08/23/19 08:00 Bi-pap 08/23/19 08:00 98.4 79 18 105/68 (80) 92 08/23/19 07:48 82 08/23/19 07:31 40.0 90 08/23/19 04:00 97.5 72 24 109/72 (84) 93 08/23/19 04:00 40.0 100 08/23/19 04:00 Bi-pap 08/23/19 03:36 68 08/23/19 03:25 40.0 100 08/23/19 00:00 97.5 74 20 114/70 (85) 93 08/23/19 00:00 Bi-pap 08/23/19 00:00 40.0 100 08/23/19 00:00 70 08/22/19 23:46 40.0 100 08/22/19 20:31 40.0 100 08/22/19 20:00 98.1 74 17 96/66 (76) 93 08/22/19 20:00 Bi-pap 08/22/19 20:00 40.0 100 08/22/19 19:29 69 08/22/19 16:03 76 08/22/19 16:00 97.0 77 17 105/65 (78) 95 08/22/19 16:00 Bi-pap 08/22/19 15:06 40.0 100 08/22/19 14:59 40.0 100 08/22/19 13:15 40.0 100 08/22/19 12:00 Bi-pap 08/22/19 12:00 80 08/22/19 12:00 75 08/22/19 12:00 97.3 80 16 93/65 (74) 98 08/22/19 11:25 77 17 100 55 Intake and Output 08/22/19 08/23/19 19:00 07:00 Intake Total 410 ml 100 ml Output Total 550 ml 600 ml Balance -140 ml -500 ml Intake Oral 300 ml 100 ml IV Total 110 ml Output Urine Total 550 ml 600 ml General Appearance: no acute distress Respiratory: chest wall non-tender Cardiovascular: normal peripheral pulses Abdomen: normal bowel sounds Microbiology Date/Time Source Procedure Growth Status 08/21/19 15:05 Blood Blood Culture - Preliminary NO GROWTH AFTER 24 HOURS Resulted 08/21/19 14:50 Blood Blood Culture - Preliminary NO GROWTH AFTER 24 HOURS Resulted 08/21/19 14:10 Nasopharynx SARS-CoV-2 RdRp Gene Assay - Final Complete Laboratory Tests 08/23/19 05:12: White Blood Count 6.0, Red Blood Count 3.33L, Hemoglobin 12.3L, Hematocrit 40.0L , Mean Corpuscular Volume 120H, Mean Corpuscular Hemoglobin 36.8H, Mean Corpuscular Hemoglobin Concent 30.6L, Red Cell Distribution Width 16.1H, Platelet Count 75L, Mean Platelet Volume 13.1H, Neutrophils (%) (Auto) , Lymphocytes (%) (Auto) , Monocytes (%) (Auto) , Eosinophils (%) (Auto) , Basophils (%) (Auto) , Sodium Level 146H, Potassium Level 4.6, Chloride Level 110H, Carbon Dioxide Level 27, Anion Gap 9, Blood Urea Nitrogen 26H, Creatinine 1.3, Estimat Glomerular Filtration Rate 52.0, Glucose Level 97, Calcium Level 8.4L Current Medications Medications (Trade) Dose Ordered Sig/July Route PRN Reason Start Time Stop Time Status Last Admin Dose Admin Ascorbic Acid (Vitamin C) 1,000 mg DAILY ORAL 08/23/19 09:00 09/22/19 08:59 08/23/19 08:09 Aspirin (Ecotrin) 81 mg DAILY ORAL 08/23/19 09:00 10/07/19 08:59 Azithromycin (Zithromax) 250 mg DAILY ORAL 08/22/19 12:30 08/29/19 12:29 08/23/19 08:10 Ceftriaxone Sodium 1 gm/ Dextrose 55 ml @ 110 mls/hr Q24H IVPB 08/22/19 12:30 08/29/19 12:29 08/22/19 13:34 Cyanocobalamin (Vitamin B-12) 500 mcg DAILY ORAL 08/23/19 09:00 09/22/19 08:59 08/23/19 08:10 Docusate Sodium (Colace) 100 mg PRN ORAL 08/22/19 15:30 09/21/19 15:29 Dronabinol (Marinol) 2.5 mg BID ORAL 08/22/19 20:00 11/20/19 19:59 08/23/19 08:10 Enoxaparin Sodium (Lovenox) 70 mg Q12HR SUBQ 08/23/19 11:30 11/21/19 11:29 Furosemide (Lasix) 40 mg EVERY 12 HOURS IV 08/22/19 21:00 09/20/19 20:59 Gabapentin (Neurontin) 300 mg THREE TIMES A DAY PRN ORAL For Pain 08/21/19 23:15 09/20/19 23:14 Pravastatin Sodium (Pravachol) 80 mg BEDTIME ORAL 08/22/19 21:00 09/21/19 20:59 08/22/19 20:50 Pregabalin (Lyrica) 100 mg BID ORAL 08/22/19 18:00 09/21/19 17:59 08/23/19 08:09 Assessment/Plan Assessment/Plan IMPRESSION: 1. Decompensated congestive heart failure. 2. DNR status. 3. Diabetes mellitus. 4. Respiratory failure. DISCUSSION: Continue medications. Diet as tolerated. Broad-spectrum antibiotics. Provide respiratory support with Hi flow o2. I will follow carefully. Wendy Mcdaniel Omar Syed MD Aug 23, 2019 10:31
--- NOTE | 2019-08-23 10:56 | Infectious Diseases Prog Note ---
Assessment/Plan Assessment/Plan antibiotics : ceftriaxone, azithromycin A 1. pneumonia 2. respiratory failure 3. COPD 4. diabetes mellitus 5. hypertension 6. CHF 7. thrombocytopenia P 1. continue ceftriaxone 2. d/c azithromycin 3. sputum cultures Subjective ROS Limited/Unobtainable: Yes Allergies: Coded Allergies: No Known Allergies (Unverified , 08/21/19) Objective Vital Signs Last 24 Hour Vital Signs Date Time Temp Pulse Resp B/P (MAP) Pulse Ox O2 Delivery O2 Flow Rate FiO2 08/23/19 10:44 93 High Flow 40.0 100 08/23/19 10:43 40.0 100 08/23/19 08:00 40.0 100 08/23/19 08:00 Bi-pap 08/23/19 08:00 98.4 79 18 105/68 (80) 92 08/23/19 07:48 82 08/23/19 07:31 40.0 90 08/23/19 04:00 97.5 72 24 109/72 (84) 93 08/23/19 04:00 40.0 100 08/23/19 04:00 Bi-pap 08/23/19 03:36 68 08/23/19 03:25 40.0 100 08/23/19 00:00 97.5 74 20 114/70 (85) 93 08/23/19 00:00 Bi-pap 08/23/19 00:00 40.0 100 08/23/19 00:00 70 08/22/19 23:46 40.0 100 08/22/19 20:31 40.0 100 08/22/19 20:00 98.1 74 17 96/66 (76) 93 08/22/19 20:00 Bi-pap 08/22/19 20:00 40.0 100 08/22/19 19:29 69 08/22/19 16:03 76 08/22/19 16:00 97.0 77 17 105/65 (78) 95 08/22/19 16:00 Bi-pap 08/22/19 15:06 40.0 100 08/22/19 14:59 40.0 100 08/22/19 13:15 40.0 100 08/22/19 12:00 Bi-pap 08/22/19 12:00 80 08/22/19 12:00 75 08/22/19 12:00 97.3 80 16 93/65 (74) 98 08/22/19 11:25 77 17 100 55 Height (Feet): 5 Height (Inches): 9.00 Weight (Pounds): 160 Respiratory/Chest: lungs clear Cardiovascular: normal rate, regular rhythm, no gallop/murmur Abdomen: soft, non tender Extremities: no edema Microbiology Date/Time Source Procedure Growth Status 08/21/19 15:05 Blood Blood Culture - Preliminary NO GROWTH AFTER 24 HOURS Resulted 08/21/19 14:50 Blood Blood Culture - Preliminary NO GROWTH AFTER 24 HOURS Resulted 08/21/19 14:10 Nasopharynx SARS-CoV-2 RdRp Gene Assay - Final Complete Laboratory Tests Test 08/23/19 05:12 White Blood Count 6.0 K/UL (4.8-10.8) Red Blood Count 3.33 M/UL (4.70-6.10) L Hemoglobin 12.3 G/DL (14.2-18.0) L Hematocrit 40.0 % (42.0-52.0) L Mean Corpuscular Volume 120 FL (80-99) H Mean Corpuscular Hemoglobin 36.8 PG (27.0-31.0) H Mean Corpuscular Hemoglobin Concent 30.6 G/DL (32.0-36.0) L Red Cell Distribution Width 16.1 % (11.6-14.8) H Platelet Count 75 K/UL (150-450) L Mean Platelet Volume 13.1 FL (6.5-10.1) H Neutrophils (%) (Auto) % (45.0-75.0) Lymphocytes (%) (Auto) % (20.0-45.0) Monocytes (%) (Auto) % (1.0-10.0) Eosinophils (%) (Auto) % (0.0-3.0) Basophils (%) (Auto) % (0.0-2.0) Sodium Level 146 MMOL/L (136-145) H Potassium Level 4.6 MMOL/L (3.5-5.1) Chloride Level 110 MMOL/L (98-107) H Carbon Dioxide Level 27 MMOL/L (21-32) Anion Gap 9 mmol/L (5-15) Blood Urea Nitrogen 26 mg/dL (7-18) H Creatinine 1.3 MG/DL (0.55-1.30) Estimat Glomerular Filtration Rate 52.0 mL/min (>60) Glucose Level 97 MG/DL (74-106) Calcium Level 8.4 MG/DL (8.5-10.1) L Current Medications Medications (Trade) Dose Ordered Sig/July Route PRN Reason Start Time Stop Time Status Last Admin Dose Admin Ascorbic Acid (Vitamin C) 1,000 mg DAILY ORAL 08/23/19 09:00 09/22/19 08:59 08/23/19 08:09 Aspirin (Ecotrin) 81 mg DAILY ORAL 08/23/19 09:00 10/07/19 08:59 Azithromycin (Zithromax) 250 mg DAILY ORAL 08/22/19 12:30 08/29/19 12:29 08/23/19 08:10 Ceftriaxone Sodium 1 gm/ Dextrose 55 ml @ 110 mls/hr Q24H IVPB 08/22/19 12:30 08/29/19 12:29 08/22/19 13:34 Cyanocobalamin (Vitamin B-12) 500 mcg DAILY ORAL 08/23/19 09:00 09/22/19 08:59 08/23/19 08:10 Docusate Sodium (Colace) 100 mg PRN ORAL 08/22/19 15:30 09/21/19 15:29 Dronabinol (Marinol) 2.5 mg BID ORAL 08/22/19 20:00 11/20/19 19:59 08/23/19 08:10 Enoxaparin Sodium (Lovenox) 70 mg Q12HR SUBQ 08/23/19 11:30 11/21/19 11:29 Furosemide (Lasix) 40 mg EVERY 12 HOURS IV 08/22/19 21:00 09/20/19 20:59 Gabapentin (Neurontin) 300 mg THREE TIMES A DAY PRN ORAL For Pain 08/21/19 23:15 09/20/19 23:14 Pravastatin Sodium (Pravachol) 80 mg BEDTIME ORAL 08/22/19 21:00 09/21/19 20:59 08/22/19 20:50 Pregabalin (Lyrica) 100 mg BID ORAL 08/22/19 18:00 09/21/19 17:59 08/23/19 08:09 Kin Maxwell MD Aug 23, 2019 10:56
--- NOTE | 2019-08-23 10:57 | General Progress Note ---
Assessment/Plan Problem List: (1) Respiratory failure ICD Codes: J96.90 - Respiratory failure, unspecified, unspecified whether with hypoxia or hypercapnia SNOMED: 937883668 (2) Troponin level elevated ICD Codes: R79.89 - Other specified abnormal findings of blood chemistry SNOMED: 866778311, [id number], [id number] (3) COPD (chronic obstructive pulmonary disease) ICD Codes: J44.9 - Chronic obstructive pulmonary disease, unspecified SNOMED: [id number] Qualifiers: Qualified Codes: J44.9 - Chronic obstructive pulmonary disease, unspecified (4) Pneumonia ICD Codes: J18.9 - Pneumonia, unspecified organism SNOMED: 577339699 Qualifiers: Qualified Codes: J18.9 - Pneumonia, unspecified organism (5) CHF (congestive heart failure) ICD Codes: I50.9 - Heart failure, unspecified SNOMED: 10735075 Qualifiers: Qualified Codes: I50.9 - Heart failure, unspecified Status: unchanged Assessment/Plan: o2 pulm tx cardio f/u abx cbc bmp am Subjective Constitutional: Reports: weakness Allergies: Coded Allergies: No Known Allergies (Unverified , 08/21/19) All Systems: reviewed and negative except above Subjective o2nc calm Objective Last 24 Hour Vital Signs Date Time Temp Pulse Resp B/P (MAP) Pulse Ox O2 Delivery O2 Flow Rate FiO2 08/23/19 10:44 93 High Flow 40.0 100 08/23/19 10:43 40.0 100 08/23/19 08:00 40.0 100 08/23/19 08:00 Bi-pap 08/23/19 08:00 98.4 79 18 105/68 (80) 92 08/23/19 07:48 82 08/23/19 07:31 40.0 90 08/23/19 04:00 97.5 72 24 109/72 (84) 93 08/23/19 04:00 40.0 100 08/23/19 04:00 Bi-pap 08/23/19 03:36 68 08/23/19 03:25 40.0 100 08/23/19 00:00 97.5 74 20 114/70 (85) 93 08/23/19 00:00 Bi-pap 08/23/19 00:00 40.0 100 08/23/19 00:00 70 08/22/19 23:46 40.0 100 08/22/19 20:31 40.0 100 08/22/19 20:00 98.1 74 17 96/66 (76) 93 08/22/19 20:00 Bi-pap 08/22/19 20:00 40.0 100 08/22/19 19:29 69 08/22/19 16:03 76 08/22/19 16:00 97.0 77 17 105/65 (78) 95 08/22/19 16:00 Bi-pap 08/22/19 15:06 40.0 100 08/22/19 14:59 40.0 100 08/22/19 13:15 40.0 100 08/22/19 12:00 Bi-pap 08/22/19 12:00 80 08/22/19 12:00 75 08/22/19 12:00 97.3 80 16 93/65 (74) 98 08/22/19 11:25 77 17 100 55 Intake and Output 08/22/19 08/23/19 19:00 07:00 Intake Total 410 ml 100 ml Output Total 550 ml 600 ml Balance -140 ml -500 ml Intake Oral 300 ml 100 ml IV Total 110 ml Output Urine Total 550 ml 600 ml Laboratory Tests 08/23/19 05:12: White Blood Count 6.0, Red Blood Count 3.33L, Hemoglobin 12.3L, Hematocrit 40.0L , Mean Corpuscular Volume 120H, Mean Corpuscular Hemoglobin 36.8H, Mean Corpuscular Hemoglobin Concent 30.6L, Red Cell Distribution Width 16.1H, Platelet Count 75L, Mean Platelet Volume 13.1H, Neutrophils (%) (Auto) , Lymphocytes (%) (Auto) , Monocytes (%) (Auto) , Eosinophils (%) (Auto) , Basophils (%) (Auto) , Sodium Level 146H, Potassium Level 4.6, Chloride Level 110H, Carbon Dioxide Level 27, Anion Gap 9, Blood Urea Nitrogen 26H, Creatinine 1.3, Estimat Glomerular Filtration Rate 52.0, Glucose Level 97, Calcium Level 8.4L Height (Feet): 5 Height (Inches): 9.00 Weight (Pounds): 160 General Appearance: lethargic EENT: PERRL/EOMI Neck: non-tender Cardiovascular: normal rate, regular rhythm Respiratory/Chest: decreased breath sounds Abdomen: normal bowel sounds, non tender, soft Extremities: normal inspection Edema: no edema noted Arm (L), no edema noted Arm (R), no edema noted Leg (L), no edema noted Leg (R), no edema noted Pedal (L), no edema noted Pedal (R), no edema noted Generalized Neurologic: motor weakness Skin: normal pigmentation, warm/dry Devon Lyles DO Aug 23, 2019 10:57
--- NOTE | 2019-08-23 11:27 | Diagnostic Imaging Report ---
EXAM: ULTRASOUND Venous Duplex Scan Markel Leg CLINICAL HISTORY: Leg pain and edema. COMPARISON: None TECHNIQUE: Doppler examination include grayscale images obtained with and without compression, and color and spectral doppler analysis. FINDINGS: Doppler examination shows normal spontaneity, phasicity, compressibility in the right lower extremity. There is no thrombus identified by grayscale. Normal color and spectral flow is identified. There is no evidence of valvular incompetency or insufficiency. In the left lower extremity, there is hypoechoic thrombus identified involving the proximal superficial femoral vein and the greater saphenous vein extending to the junction with the common femoral vein. The rest of these segments otherwise unremarkable. IMPRESSION: DVT NOTED IN THE PROXIMAL LEFT SUPERFICIAL FEMORAL VEIN WELL SVT INVOLVING THE GREATER SAPHENOUS VEIN EXTENDING TO THE COMMON FEMORAL VEIN MARGIN.
[2019-08-23] MEDS ORDERED: Enoxaparin Sodium 300mg/3ml vial SUBQ SCH ×2 (11:30→21:00)
[2019-08-23] MEDS: cefTRIAXone 1 GM in D5W 55 ML IVPB SCH (11:52)
[2019-08-23 12:00] VITALS: BP 115/69
--- NOTE | 2019-08-23 13:29 | NUR ---
CASE MANAGEMENT: REVIEW 88 YEAR OLD MALE CC: SOB SAT 88% SI: COPD . PNA T 98.1 HR 76 RR 20 BP 98/65 SAT 94% NON-REBREATHER FLOW RATE 15.0 TROP I 0.378 NA 146 ABG: PH 7.333 PCO2 53.6 PO2 183.5 HCO3 27.8 IS: ZOSYN IV X1 NS IVF BOLUS X1 ALBUTEROL INH X1 AZITHROMYCIN IV X1 LASIX 40MG IV X1 SOLU MEDROL IV X1 PATIENT ADMITTED TO STEP DOWN UNIT 08/21/2019 DCP: PATIENT IS FROM HOME
--- NOTE | 2019-08-23 13:47 | Cardiac Electrophysiology PN ---
Assessment/Plan Assessment/Plan 1. CHF exacerbation with BNP of more than 10,000. The patient has bilateral lower extremity edema and volume overload. On Lasix 40 mg IV b.i.d. EF 55% but severe pulmonary HTN more than 90 2. Coronary artery disease with history of coronary artery bypass graft and elevated troponin. Troponin levels are low and flat 0.3 and 0[address]-T wave abnormalities. The patient is already on aspirin 3. Diabetes, on metformin. 4. Neuropathy, on gabapentin. 5. Severe pulmonary HTN >90. DNR and almost [address] Cydney MAGAÑA RN Subjective Subjective On High flow oxygen. In SR. DNR Objective Last 24 Hour Vital Signs Date Time Temp Pulse Resp B/P (MAP) Pulse Ox O2 Delivery O2 Flow Rate FiO2 08/23/19 12:00 98.4 79 18 115/69 (84) 92 08/23/19 12:00 Nasal Cannula 40.0 08/23/19 12:00 40.0 100 08/23/19 10:44 93 High Flow 40.0 100 08/23/19 10:43 40.0 100 08/23/19 08:00 40.0 100 08/23/19 08:00 Nasal Cannula 40.0 08/23/19 08:00 98.4 79 18 105/68 (80) 92 08/23/19 07:48 82 08/23/19 07:31 40.0 90 08/23/19 04:00 97.5 72 24 109/72 (84) 93 08/23/19 04:00 40.0 100 08/23/19 04:00 Bi-pap 08/23/19 03:36 68 08/23/19 03:25 40.0 100 08/23/19 00:00 97.5 74 20 114/70 (85) 93 08/23/19 00:00 Bi-pap 08/23/19 00:00 40.0 100 08/23/19 00:00 70 08/22/19 23:46 40.0 100 08/22/19 20:31 40.0 100 08/22/19 20:00 98.1 74 17 96/66 (76) 93 08/22/19 20:00 Bi-pap 08/22/19 20:00 40.0 100 08/22/19 19:29 69 08/22/19 16:03 76 08/22/19 16:00 97.0 77 17 105/65 (78) 95 08/22/19 16:00 Bi-pap 08/22/19 15:06 40.0 100 08/22/19 14:59 40.0 100 Intake and Output 08/22/19 08/23/19 19:00 07:00 Intake Total 410 ml 100 ml Output Total 550 ml 600 ml Balance -140 ml -500 ml Intake Oral 300 ml 100 ml IV Total 110 ml Output Urine Total 550 ml 600 ml Laboratory Tests Test 08/23/19 05:12 White Blood Count 6.0 K/UL (4.8-10.8) Red Blood Count 3.33 M/UL (4.70-6.10) L Hemoglobin 12.3 G/DL (14.2-18.0) L Hematocrit 40.0 % (42.0-52.0) L Mean Corpuscular Volume 120 FL (80-99) H Mean Corpuscular Hemoglobin 36.8 PG (27.0-31.0) H Mean Corpuscular Hemoglobin Concent 30.6 G/DL (32.0-36.0) L Red Cell Distribution Width 16.1 % (11.6-14.8) H Platelet Count 75 K/UL (150-450) L Mean Platelet Volume 13.1 FL (6.5-10.1) H Neutrophils (%) (Auto) % (45.0-75.0) Lymphocytes (%) (Auto) % (20.0-45.0) Monocytes (%) (Auto) % (1.0-10.0) Eosinophils (%) (Auto) % (0.0-3.0) Basophils (%) (Auto) % (0.0-2.0) Sodium Level 146 MMOL/L (136-145) H Potassium Level 4.6 MMOL/L (3.5-5.1) Chloride Level 110 MMOL/L (98-107) H Carbon Dioxide Level 27 MMOL/L (21-32) Anion Gap 9 mmol/L (5-15) Blood Urea Nitrogen 26 mg/dL (7-18) H Creatinine 1.3 MG/DL (0.55-1.30) Estimat Glomerular Filtration Rate 52.0 mL/min (>60) Glucose Level 97 MG/DL (74-106) Calcium Level 8.4 MG/DL (8.5-10.1) L Microbiology Date/Time Source Procedure Growth Status 08/21/19 15:05 Blood Blood Culture - Preliminary NO GROWTH AFTER 24 HOURS Resulted 08/21/19 14:50 Blood Blood Culture - Preliminary NO GROWTH AFTER 24 HOURS Resulted 08/21/19 14:10 Nasopharynx SARS-CoV-2 RdRp Gene Assay - Final Complete Objective HEAD AND NECK: Positive JVD. LUNGS: Coarse rhonchi. Basilar rales. CARDIOVASCULAR: Shows regular S1 and S2 with no gallop. Sternal scar is intact. ABDOMEN: Soft. EXTREMITIES: Bilateral 2+ pitting edema. Juan Montes De Oca MD Aug 23, 2019 13:47
--- NOTE | 2019-08-23 15:30 | Diagnostic Imaging Report ---
EXAM: ULTRASOUND US ABD Complete CLINICAL HISTORY: Abdominal pain. COMPARISON: None TECHNIQUE: Ultrasound examination of the abdomen includes grayscale images, and color and spectral doppler analysis. FINDINGS: The liver is echogenic. Spleen is obscured by bowel gas. There is a small amount of ascites. Gallbladder is without sludge or stone but there is mild wall thickening demonstrated. Question whether this is related to underlying liver disease. Common bile duct measures 6 mm. Pancreas is marginally visualized. Right kidney is unremarkable. Left kidney is mostly obscured. There is aneurysmal change of the abdominal aorta. The mid aorta measures up to 3.4 cm in AP diameter. In the distal infrarenal aorta, there is a small peripheral linear echogenic structure which is questionable for a small intimal flap. Question possible dissection. Consider correlation with CT angiogram. IMPRESSION: ECHOGENIC HETEROGENEOUS LIVER LIKELY REFLECTING UNDERLYING PARENCHYMAL LIVER DISEASE. SMALL AMOUNT OF ASCITES. GALLBLADDER WALL THICKENING WHICH COULD ALSO BE RELATED TO UNDERLYING LIVER DISEASE. NO DISTINCT STONE OR SLUDGE. PANCREAS, SPLEEN AND LEFT KIDNEY ARE MOSTLY OBSCURED. ANEURYSM OF THE ABDOMINAL AORTA. QUESTIONABLE INTIMAL FLAP IN THE INFRARENAL AORTA. RECOMMEND FOLLOW-UP CT ANGIOGRAM OF THE ABDOMEN. Critical value findings were communicated to the patient's nurse in 2 W. 08/23/2019 AT 3:25 PM
--- NOTE | 2019-08-23 15:39 | NUR ---
NURSE NOTES: US Abd result was reported to Dr Grimm. Awaiting callback and new order.
--- NOTE | 2019-08-23 15:46 | NUR ---
NURSE NOTES: dr de la cruz acknowledged US abdomen result. no new orders received.
[2019-08-23 15:52] VITALS: BP 110/67
--- NOTE | 2019-08-23 19:20 | NUR ---
HAND-OFF: Report given to shira bower.
--- NOTE | 2019-08-23 19:27 | NUR ---
RESPIRATORY NOTE: Received pt on High Flow Nasal Cannula 40L, 100%. Pt found desating to 87%. Flow bumped to 50L at this time. Pt tolerating spO2 90-92%. Pt complaining it's too hot, Temp adjusted to 35 degrees. Pt is alert/awake, follows commands. B/S vinnie. diminished w/ occasional crackles, nonproductive cough. Optifoam applied per RN on pt's cheeks to prevent irritations. Skin is intact, no redness/breakdowns noted. High Flow plugged into red outlet. Bottle changed. Pt denies SOB/chest pain at this time. Will continue plan of care.
--- NOTE | 2019-08-23 19:30 | NUR ---
NURSE NOTES: received pt from Shea TAVAREZ., pt is AOx4 at this time. pt is on high [id number] Fio2 100% NC. no respiratory distress noted. O2 sat is at 92%. pt states no pain at this time. condom cath is on, intact, clean, and patent. right hand 20g Left FA 20G Iv site clean, patent, and intact. call light within reach. bed at the lowest position, alarmed, and locked. will continue to monitor pt with plan of care.
[2019-08-23 20:00] VITALS: BP 109/78
--- NOTE | 2019-08-23 23:15 | NUR ---
HAND-OFF: Report given to RUPA TAVAREZ.Patient remains on high flow 50L Fio2 100% NC. No Resp distress noted.O2 sat at 96%.
--- NOTE | 2019-08-23 23:20 | NUR ---
NURSE NOTES: Pt report received from Joya Ca RN. pt remains stable. pt is alert and oriented times 3, however no acute change mentation adhikari. pt is on high flow NC sating at 99% O2 no acute distress resp adhikari. pt is on cardiac specialist showing NSR, no acute abnormalities. pt bed is low, locked, armed, call light within reach. will follow plan of care.
--- NOTE | 2019-08-23 23:44 | NUR ---
NURSE NOTES: spoke to Moira [facility] pharmacist. she needed to adjust Lovenox dosage to be able to pull from Pyxis. however, will administer 70Mg as doctor order. pt remains stable.
[2019-08-23] MEDS: Enoxaparin 80mg Inj SUBQ SCH (23:53)
[2019-08-24] VITALS: BP 120/76
[2019-08-24] MEDS ORDERED: Enoxaparin Sodium 300mg/3ml vial SUBQ SCH
--- NOTE | 2019-08-24 | NUR ---
NURSE NOTES: spoke to Joya Ca RN. reviewed protocol for Lovenox med. Joya Kelley approved to give Lovenox due to active DVT and stable HGB and HCT. no active bleeding noted.
[2019-08-24 04:00] VITALS: BP 108/65
[2019-08-24 05:22] LABS: HEMATOCRIT 42.5 % (42.0-52.0); MEAN CORPUSCULAR VOLUME 121 FL (80-99); PLATELET COUNT 75 K/UL (150-450); RED BLOOD COUNT 3.52 M/UL (4.70-6.10); RED CELL DISTRIBUTION WIDTH 15.7 % (11.6-14.8); WHITE BLOOD COUNT 7.7 K/UL (4.8-10.8)
[2019-08-24 05:39] LABS: ANION GAP 9 mmol/L (5-15); BLOOD UREA NITROGEN 26 mg/dL (7-18); CALCIUM 8.5 MG/DL (8.5-10.1); CARBON DIOXIDE 26 MMOL/L (21-32); CHLORIDE 110 MMOL/L (98-107); CREATININE 1.3 MG/DL (0.55-1.30); POTASSIUM 4.6 MMOL/L (3.5-5.1); SODIUM 145 MMOL/L (136-145)
--- NOTE | 2019-08-24 07:12 | Hematology/Onc Progress Note ---
Assessment/Plan Assessment/Plan Assessment and Recs # DVT NOTED IN THE PROXIMAL LEFT SUPERFICIAL FEMORAL VEIN WELL SVT INVOLVING THE GREATER SAPHENOUS VEIN EXTENDING TO THE COMMON FEMORAL VEIN MARGIN. --> has been started on lovenox 1mg/kig bid --> outpatient likely twin recommend v xarelto --> will write for script once discharged --> okay to anticoag if plt >50k # Lung mass/nodules -- patient says has a hx of malignancy in the past, but stage unknown, no intervention --> once more stable, ct of chest, however doesn't need to be done acutely --> as per pulm eval prn # Thrombocytopenia reactive v medications related --> plt trend 90-->75-->75 --> hep and hiv panel ordered --> us of the abdomen as has not been done before # COPD (chronic obstructive pulmonary disease) --> pulm eval # CHF (congestive heart failure) --> bnp initially >09455 --> per Dr. Montes De Oca, diuresis with lasix bid # Troponin elevation with cad and cabg --> per cards # Hypoxia -- on bipap # DM2 # DNR Appreciate consultation and edisy Rn Subjective HEENT: Denies: no symptoms, eye pain, blurred vision, tearing, double vision, ear pain, ear discharge, nose pain, nose congestion, throat pain, throat swelling, mouth pain, mouth swelling, other Cardiovascular: Denies: no symptoms, chest pain, edema, irregular heart rate, lightheadedness, palpitations, syncope, other Respiratory: Denies: no symptoms, cough, shortness of breath, SOB with excertion, SOB at rest, sputum, wheezing, other Gastrointestinal/Abdominal: Denies: no symptoms, abdomen distended, abdominal pain, black stools, tarry stools, blood in stool, constipated, diarrhea, difficulty swallowing, nausea, poor appetite, poor fluid intake, rectal bleeding , vomiting, other Genitourinary: Denies: no symptoms, burning, discharge, frequency, flank pain, hematuria, incontinence, pain, urgency, other Neurologic/Psychiatric: Denies: no symptoms, anxiety, depressed, emotional problems, headache, numbness, paresthesia, pre-existing deficit, seizure, tingling, tremors, weakness, other Endocrine: Denies: no symptoms, excessive sweating, flushing, intolerance to cold, intolerance to heat, increased hunger, increased thirst, increased urine, unexplained weight gain, unexplained weight loss, other Hematologic/Lymphatic: Denies: no symptoms, anemia, easy bleeding, easy bruising, adenopathy, other Allergies: Coded Allergies: No Known Allergies (Unverified , 08/21/19) Subjective 08/23 labs reviewed, and okay to administer lovenox, no bleeding hgb 13 Objective Objective Current Medications Medications (Trade) Dose Ordered Sig/July Route PRN Reason Start Time Stop Time Status Last Admin Dose Admin Ascorbic Acid (Vitamin C) 1,000 mg DAILY ORAL 08/23/19 09:00 09/22/19 08:59 08/23/19 08:09 Aspirin (Ecotrin) 81 mg DAILY ORAL 08/24/19 09:00 10/07/19 08:59 Ceftriaxone Sodium 1 gm/ Dextrose 55 ml @ 110 mls/hr Q24H IVPB 08/22/19 12:30 08/29/19 12:29 08/23/19 11:52 Cyanocobalamin (Vitamin B-12) 500 mcg DAILY ORAL 08/23/19 09:00 09/22/19 08:59 08/23/19 08:10 Docusate Sodium (Colace) 100 mg PRN ORAL 08/22/19 15:30 09/21/19 15:29 Dronabinol (Marinol) 2.5 mg BID ORAL 08/22/19 20:00 11/20/19 19:59 08/23/19 16:59 Enoxaparin Sodium (Lovenox) 70 mg Q12H SUBQ 08/24/19 00:00 11/22/19 00:00 08/23/19 23:53 Furosemide (Lasix) 40 mg EVERY 12 HOURS IV 08/22/19 21:00 09/20/19 20:59 Gabapentin (Neurontin) 300 mg THREE TIMES A DAY PRN ORAL For Pain 08/21/19 23:15 09/20/19 23:14 Pravastatin Sodium (Pravachol) 80 mg BEDTIME ORAL 08/22/19 21:00 09/21/19 20:59 08/23/19 22:05 Pregabalin (Lyrica) 100 mg BID ORAL 08/22/19 18:00 09/21/19 17:59 08/23/19 16:59 Last 24 Hour Vital Signs Date Time Temp Pulse Resp B/P (MAP) Pulse Ox O2 Delivery O2 Flow Rate FiO2 08/24/19 04:00 Nasal Cannula 50.0 08/24/19 04:00 50.0 100 08/24/19 04:00 98.4 80 24 108/65 (79) 98 08/24/19 04:00 81 08/24/19 03:32 94 High Flow 50.0 100 08/24/19 00:00 50.0 100 08/24/19 00:00 77 08/24/19 00:00 Nasal Cannula 50.0 08/24/19 00:00 98.2 73 24 120/76 (91) 97 08/23/19 23:10 94 High Flow 50.0 100 08/23/19 20:00 50.0 100 08/23/19 20:00 97.9 82 24 109/78 (88) 92 08/23/19 20:00 Nasal Cannula 50.0 08/23/19 20:00 86 08/23/19 19:25 90 High Flow 50.0 100 08/23/19 19:25 84 20 90 High Flow 50.0 100 08/23/19 16:00 Nasal Cannula 40.0 08/23/19 16:00 40.0 100 08/23/19 15:52 98.6 78 18 110/67 (81) 95 08/23/19 15:14 91 High Flow 40.0 100 08/23/19 15:12 81 08/23/19 12:00 98.4 79 18 115/69 (84) 92 08/23/19 12:00 Nasal Cannula 40.0 08/23/19 12:00 40.0 100 08/23/19 11:30 76 08/23/19 10:44 93 High Flow 40.0 100 08/23/19 10:43 40.0 100 08/23/19 08:00 40.0 100 08/23/19 08:00 Nasal Cannula 40.0 08/23/19 08:00 98.4 79 18 105/68 (80) 92 08/23/19 07:48 82 08/23/19 07:31 40.0 90 08/23/19 04:00 97.5 72 24 109/72 (84) 93 08/23/19 04:00 40.0 100 08/23/19 04:00 Bi-pap 08/23/19 03:36 68 08/23/19 03:25 40.0 100 08/23/19 00:00 97.5 74 20 114/70 (85) 93 08/23/19 00:00 Bi-pap 08/23/19 00:00 40.0 100 08/23/19 00:00 70 08/22/19 23:46 40.0 100 08/22/19 20:31 40.0 100 08/22/19 20:00 98.1 74 17 96/66 (76) 93 08/22/19 20:00 Bi-pap 08/22/19 20:00 40.0 100 08/22/19 19:29 69 08/22/19 16:03 76 08/22/19 16:00 97.0 77 17 105/65 (78) 95 08/22/19 16:00 Bi-pap 08/22/19 15:06 40.0 100 08/22/19 14:59 40.0 100 08/22/19 13:15 40.0 100 08/22/19 12:00 Bi-pap 08/22/19 12:00 80 08/22/19 12:00 75 08/22/19 12:00 97.3 80 16 93/65 (74) 98 08/22/19 11:25 77 17 100 55 08/22/19 08:00 92 08/22/19 08:00 Bi-pap 08/22/19 08:00 97.7 84 14 91/64 (73) 100 08/22/19 08:00 100 08/22/19 07:11 84 18 100 70 Intake and Output 08/23/19 08/24/19 19:00 07:00 Intake Total 460 ml Output Total 350 ml Balance 110 ml Intake Oral 350 ml IV Total 110 ml Output Urine Total 350 ml Labs Test 08/21/19 13:42 08/21/19 14:45 08/21/19 14:50 08/21/19 17:28 Arterial Blood pH 7.333 (7.350-7.450) 7.264 (7.350-7.450) Arterial Blood Partial Pressure CO2 53.6 mmHg (35.0-45.0) 59.2 mmHg (35.0-45.0) Arterial Blood Partial Pressure O2 183.5 mmHg (75.0-100.0) 165.0 mmHg (75.0-100.0) Arterial Blood HCO3 27.8 mmol/L (22.0-26.0) 26.2 mmol/L (22.0-26.0) Arterial Blood Oxygen Saturation 98.6 % (95-100) 98.5 % (95-100) Arterial Blood Base Excess 1.0 (-2-2) -1.8 (-2-2) Dmitry Test Positive Positive Urine Color Sisi Urine Appearance Clear Urine pH 5 (4.5-8.0) Urine Specific Ducor 1.025 (1.005-1.035) Urine Protein 2+ (NEGATIVE) Urine Glucose (UA) Negative (NEGATIVE) Urine Ketones 1+ (NEGATIVE) Urine Blood Negative (NEGATIVE) Urine Nitrite Negative (NEGATIVE) Urine Bilirubin Negative (NEGATIVE) Urine Ictotest Negative (NEGATIVE) Urine Urobilinogen 8 MG/DL (0.0-1.0) Urine Leukocyte Esterase 1+ (NEGATIVE) Urine RBC 0 /HPF (0 - 0) Urine WBC 0-2 /HPF (0 - 0) Urine Squamous Epithelial Cells None /LPF (NONE/OCC) Urine Bacteria Occasional /HPF (NONE) White Blood Count 6.0 K/UL (4.8-10.8) Red Blood Count 3.64 M/UL (4.70-6.10) Hemoglobin 13.3 G/DL (14.2-18.0) Hematocrit 44.0 % (42.0-52.0) Mean Corpuscular Volume 121 FL (80-99) Mean Corpuscular Hemoglobin 36.7 PG (27.0-31.0) Mean Corpuscular Hemoglobin Concent 30.3 G/DL (32.0-36.0) Red Cell Distribution Width 15.5 % (11.6-14.8) Platelet Count 108 K/UL (150-450) Mean Platelet Volume 11.6 FL (6.5-10.1) Neutrophils (%) (Auto) % (45.0-75.0) Lymphocytes (%) (Auto) % (20.0-45.0) Monocytes (%) (Auto) % (1.0-10.0) Eosinophils (%) (Auto) % (0.0-3.0) Basophils (%) (Auto) % (0.0-2.0) Differential Total Cells Counted 100 Neutrophils % (Manual) 64 % (45-75) Lymphocytes % (Manual) 24 % (20-45) Monocytes % (Manual) 8 % (1-10) Eosinophils % (Manual) 0 % (0-3) Basophils % (Manual) 0 % (0-2) Band Neutrophils 4 % (0-8) Nucleated Red Blood Cells 1 /100 WBC Platelet Estimate Decreased Platelet Morphology Normal Anisocytosis 1+ Prothrombin Time 12.9 SEC (9.30-11.50) Prothromb Time International Ratio 1.2 (0.9-1.1) Activated Partial Thromboplast Time 26 SEC (23-33) Sodium Level 146 MMOL/L (136-145) Potassium Level 3.9 MMOL/L (3.5-5.1) Chloride Level 110 MMOL/L (98-107) Carbon Dioxide Level 29 MMOL/L (21-32) Anion Gap 7 mmol/L (5-15) Blood Urea Nitrogen 24 mg/dL (7-18) Creatinine 1.2 MG/DL (0.55-1.30) Estimat Glomerular Filtration Rate 57.0 mL/min (>60) Glucose Level 113 MG/DL (74-106) Lactic Acid Level 1.30 mmol/L (0.4-2.0) Calcium Level 8.3 MG/DL (8.5-10.1) Phosphorus Level 3.8 MG/DL (2.5-4.9) Magnesium Level 2.2 MG/DL (1.8-2.4) Total Bilirubin 0.8 MG/DL (0.2-1.0) Aspartate Amino Transf (AST/SGOT) 23 U/L (15-37) Alanine Aminotransferase (ALT/SGPT) 20 U/L (12-78) Alkaline Phosphatase 78 U/L (46-116) Total Creatine Kinase 76 U/L (26-308) Troponin I 0.378 ng/mL (0.000-0.056) Pro-B-Type Natriuretic Peptide 11458 pg/mL (0-125) Total Protein 6.5 G/DL (6.4-8.2) Albumin 3.2 G/DL (3.4-5.0) Globulin 3.3 g/dL Albumin/Globulin Ratio 1.0 (1.0-2.7) Test 08/22/19 03:14 08/22/19 03:15 08/22/19 07:48 08/23/19 05:12 White Blood Count 4.1 K/UL (4.8-10.8) 6.0 K/UL (4.8-10.8) Red Blood Count 3.20 M/UL (4.70-6.10) 3.33 M/UL (4.70-6.10) Hemoglobin 11.6 G/DL (14.2-18.0) 12.3 G/DL (14.2-18.0) Hematocrit 38.9 % (42.0-52.0) 40.0 % (42.0-52.0) Mean Corpuscular Volume 121 FL (80-99) 120 FL (80-99) Mean Corpuscular Hemoglobin 36.3 PG (27.0-31.0) 36.8 PG (27.0-31.0) Mean Corpuscular Hemoglobin Concent 29.9 G/DL (32.0-36.0) 30.6 G/DL (32.0-36.0) Red Cell Distribution Width 15.6 % (11.6-14.8) 16.1 % (11.6-14.8) Platelet Count 91 K/UL (150-450) 75 K/UL (150-450) Mean Platelet Volume 13.0 FL (6.5-10.1) 13.1 FL (6.5-10.1) Neutrophils (%) (Auto) % (45.0-75.0) % (45.0-75.0) Lymphocytes (%) (Auto) % (20.0-45.0) % (20.0-45.0) Monocytes (%) (Auto) % (1.0-10.0) % (1.0-10.0) Eosinophils (%) (Auto) % (0.0-3.0) % (0.0-3.0) Basophils (%) (Auto) % (0.0-2.0) % (0.0-2.0) Differential Total Cells Counted 100 Neutrophils % (Manual) 91 % (45-75) Lymphocytes % (Manual) 7 % (20-45) Monocytes % (Manual) 2 % (1-10) Eosinophils % (Manual) 0 % (0-3) Basophils % (Manual) 0 % (0-2) Band Neutrophils 0 % (0-8) Platelet Estimate Decreased Platelet Morphology Normal Hypochromasia 1+ Anisocytosis 1+ Macrocytosis 2+ Sodium Level 147 MMOL/L (136-145) 146 MMOL/L (136-145) Potassium Level 4.8 MMOL/L (3.5-5.1) 4.6 MMOL/L (3.5-5.1) Chloride Level 112 MMOL/L (98-107) 110 MMOL/L (98-107) Carbon Dioxide Level 28 MMOL/L (21-32) 27 MMOL/L (21-32) Anion Gap 8 mmol/L (5-15) 9 mmol/L (5-15) Blood Urea Nitrogen 27 mg/dL (7-18) 26 mg/dL (7-18) Creatinine 1.3 MG/DL (0.55-1.30) 1.3 MG/DL (0.55-1.30) Estimat Glomerular Filtration Rate 52.0 mL/min (>60) 52.0 mL/min (>60) Glucose Level 153 MG/DL (74-106) 97 MG/DL (74-106) Calcium Level 7.9 MG/DL (8.5-10.1) 8.4 MG/DL (8.5-10.1) Troponin I 0.189 ng/mL (0.000-0.056) Pro-B-Type Natriuretic Peptide 88359 pg/mL (0-125) Triglycerides Level 40 MG/DL (30-150) Cholesterol Level 86 MG/DL (< 200) LDL Cholesterol 45 mg/dL (<100) HDL Cholesterol 40 MG/DL (40-60) Cholesterol/HDL Ratio 2.2 (3.3-4.4) HIV (1&2) Antibody Rapid Negative (NEGATIVE) Hepatitis A IgM Antibody Negative (Negative) Hepatitis B Surface Antigen Negative (Negative) Hepatitis B Core IgM Antibody Negative (Negative) Hepatitis C Antibody <0.1 s/co ratio Arterial Blood pH 7.360 (7.350-7.450) Arterial Blood Partial Pressure CO2 40.1 mmHg (35.0-45.0) Arterial Blood Partial Pressure O2 79.8 mmHg (75.0-100.0) Arterial Blood HCO3 22.1 mmol/L (22.0-26.0) Arterial Blood Oxygen Saturation 94.7 % (95-100) Arterial Blood Base Excess -3.0 (-2-2) Dmitry Test Positive Test 08/24/19 03:30 White Blood Count 7.7 K/UL (4.8-10.8) Red Blood Count 3.52 M/UL (4.70-6.10) Hemoglobin 13.0 G/DL (14.2-18.0) Hematocrit 42.5 % (42.0-52.0) Mean Corpuscular Volume 121 FL (80-99) Mean Corpuscular Hemoglobin 36.9 PG (27.0-31.0) Mean Corpuscular Hemoglobin Concent 30.5 G/DL (32.0-36.0) Red Cell Distribution Width 15.7 % (11.6-14.8) Platelet Count 75 K/UL (150-450) Mean Platelet Volume 12.4 FL (6.5-10.1) Neutrophils (%) (Auto) % (45.0-75.0) Lymphocytes (%) (Auto) % (20.0-45.0) Monocytes (%) (Auto) % (1.0-10.0) Eosinophils (%) (Auto) % (0.0-3.0) Basophils (%) (Auto) % (0.0-2.0) Sodium Level 145 MMOL/L (136-145) Potassium Level 4.6 MMOL/L (3.5-5.1) Chloride Level 110 MMOL/L (98-107) Carbon Dioxide Level 26 MMOL/L (21-32) Anion Gap 9 mmol/L (5-15) Blood Urea Nitrogen 26 mg/dL (7-18) Creatinine 1.3 MG/DL (0.55-1.30) Estimat Glomerular Filtration Rate 52.0 mL/min (>60) Glucose Level 101 MG/DL (74-106) Calcium Level 8.5 MG/DL (8.5-10.1) Height (Feet): 5 Height (Inches): 9.00 Weight (Pounds): 160 Objective Physical Exam Vitals: reviewed, normal General: no apparent distress, alert, GCS 15, non-toxic, lethargic HEENT hearing grossly normal, normal pharynx, no angioedema, normal voice Neck: full range of motion, supple/symm/no masses Respiratory: chest non-tender, crackles Cardiovascular: regular rate, rhythm, no edema GI: normal bowel sounds, non tender, soft, non-distended, no guarding, no rebound Neurologic: other - Lethargic Lymphatic: no adenopathy Ramos Grimm MD Aug 24, 2019 07:12
--- NOTE | 2019-08-24 07:30 | NUR ---
HAND-OFF: Report given to Anna TAVAREZ. endorsed plan of care. pt remains stable.
--- NOTE | 2019-08-24 07:51 | NUR ---
NURSE NOTES: Received bedside report from Claudio Peña RN. Pt. in bed, awake, a/o x 4. No sign of distress. On high flow at 50%. No grimacing noted. IV at right hand #20g. and left FA #20g. Pleasant and cooperative. Bed in low position, locked. Call light within reach. Will cont. to monitor.
[2019-08-24 08:00] VITALS: BP 120/66
[2019-08-24] MEDS ORDERED: Aspirin EC 81mg tab ORAL SCH (09:00)
--- NOTE | 2019-08-24 09:30 | NUR ---
NURSE NOTES: Kary MARAVILLA talking to my pt. regarding possible d/c to SNF and pt. said "No" and wanting just to stay here.
[2019-08-24] MEDS: Dronabinol 2.5mg Cap ORAL SCH (09:52)
[2019-08-24] MEDS: Vitamin B-12 500mcg tab ORAL SCH (09:53)
[2019-08-24] MEDS: Lyrica 50mg cap ORAL SCH (09:53)
[2019-08-24] MEDS: Ascorbic Acid 500mg tab ORAL SCH (09:54)
--- NOTE | 2019-08-24 10:29 | Cardiac Electrophysiology PN ---
Assessment/Plan Assessment/Plan 1. CHF exacerbation with BNP of more than 10,000. The patient has bilateral lower extremity edema and volume overload. On Lasix 40 mg IV b.i.d. EF 55% and severe pulmonary HTN more than 90 2. Coronary artery disease with history of coronary artery bypass graft and elevated troponin. Troponin levels are low and flat 0.3 and 0.[address]-T wave abnormalities. The patient is already on aspirin 3. Diabetes, on metformin. 4. Neuropathy, on gabapentin. 5. Severe pulmonary HTN >90. DNR and almost [address] Cydney MAGAÑA RN Subjective Subjective On High flow oxygen at 15 liter. In SR. DNR Objective Last 24 Hour Vital Signs Date Time Temp Pulse Resp B/P (MAP) Pulse Ox O2 Delivery O2 Flow Rate FiO2 08/24/19 09:00 50.0 100 08/24/19 08:00 97.7 78 18 120/66 (84) 92 08/24/19 07:12 94 High Flow 50.0 100 08/24/19 04:00 Nasal Cannula 50.0 08/24/19 04:00 50.0 100 08/24/19 04:00 98.4 80 24 108/65 (79) 98 08/24/19 04:00 81 08/24/19 03:32 94 High Flow 50.0 100 08/24/19 00:00 50.0 100 08/24/19 00:00 77 08/24/19 00:00 Nasal Cannula 50.0 08/24/19 00:00 98.2 73 24 120/76 (91) 97 08/23/19 23:10 94 High Flow 50.0 100 08/23/19 20:00 50.0 100 08/23/19 20:00 97.9 82 24 109/78 (88) 92 08/23/19 20:00 Nasal Cannula 50.0 08/23/19 20:00 86 08/23/19 19:25 90 High Flow 50.0 100 08/23/19 19:25 84 20 90 High Flow 50.0 100 08/23/19 16:00 Nasal Cannula 40.0 08/23/19 16:00 40.0 100 08/23/19 15:52 98.6 78 18 110/67 (81) 95 08/23/19 15:14 91 High Flow 40.0 100 08/23/19 15:12 81 08/23/19 12:00 98.4 79 18 115/69 (84) 92 08/23/19 12:00 Nasal Cannula 40.0 08/23/19 12:00 40.0 100 08/23/19 11:30 76 08/23/19 10:44 93 High Flow 40.0 100 08/23/19 10:43 40.0 100 Intake and Output 08/23/19 08/24/19 19:00 07:00 Intake Total 460 ml Output Total 350 ml 400 ml Balance 110 ml -400 ml Intake Oral 350 ml IV Total 110 ml Output Urine Total 350 ml 400 ml Laboratory Tests Test 08/24/19 03:30 White Blood Count 7.7 K/UL (4.8-10.8) Red Blood Count 3.52 M/UL (4.70-6.10) L Hemoglobin 13.0 G/DL (14.2-18.0) L Hematocrit 42.5 % (42.0-52.0) Mean Corpuscular Volume 121 FL (80-99) H Mean Corpuscular Hemoglobin 36.9 PG (27.0-31.0) H Mean Corpuscular Hemoglobin Concent 30.5 G/DL (32.0-36.0) L Red Cell Distribution Width 15.7 % (11.6-14.8) H Platelet Count 75 K/UL (150-450) L Mean Platelet Volume 12.4 FL (6.5-10.1) H Neutrophils (%) (Auto) % (45.0-75.0) Lymphocytes (%) (Auto) % (20.0-45.0) Monocytes (%) (Auto) % (1.0-10.0) Eosinophils (%) (Auto) % (0.0-3.0) Basophils (%) (Auto) % (0.0-2.0) Sodium Level 145 MMOL/L (136-145) Potassium Level 4.6 MMOL/L (3.5-5.1) Chloride Level 110 MMOL/L (98-107) H Carbon Dioxide Level 26 MMOL/L (21-32) Anion Gap 9 mmol/L (5-15) Blood Urea Nitrogen 26 mg/dL (7-18) H Creatinine 1.3 MG/DL (0.55-1.30) Estimat Glomerular Filtration Rate 52.0 mL/min (>60) Glucose Level 101 MG/DL (74-106) Calcium Level 8.5 MG/DL (8.5-10.1) Microbiology Date/Time Source Procedure Growth Status 08/21/19 15:05 Blood Blood Culture - Preliminary NO GROWTH AFTER 48 HOURS Resulted 08/21/19 14:50 Blood Blood Culture - Preliminary NO GROWTH AFTER 48 HOURS Resulted 08/21/19 14:10 Nasopharynx SARS-CoV-2 RdRp Gene Assay - Final Complete Objective HEAD AND NECK: Positive JVD. LUNGS: Coarse rhonchi. Basilar rales. CARDIOVASCULAR: Regular S1 and S2 with no gallop. Sternal scar is intact. ABDOMEN: Soft. EXTREMITIES: Bilateral 2+ pitting edema. Juan Montes De Oca MD Aug 24, 2019 10:29
--- NOTE | 2019-08-24 10:29 | Infectious Diseases Prog Note ---
Assessment/Plan Assessment/Plan antibiotics : ceftriaxone A 1. pneumonia covid 19 test negative x 1 2. respiratory failure 3. COPD 4. diabetes mellitus 5. hypertension 6. CHF 7. thrombocytopenia P 1. continue ceftriaxone 2. will follow up cultures Subjective ROS Limited/Unobtainable: Yes Allergies: Coded Allergies: No Known Allergies (Unverified , 08/21/19) Objective Vital Signs Last 24 Hour Vital Signs Date Time Temp Pulse Resp B/P (MAP) Pulse Ox O2 Delivery O2 Flow Rate FiO2 08/24/19 09:00 50.0 100 08/24/19 08:00 97.7 78 18 120/66 (84) 92 08/24/19 07:12 94 High Flow 50.0 100 08/24/19 04:00 Nasal Cannula 50.0 08/24/19 04:00 50.0 100 08/24/19 04:00 98.4 80 24 108/65 (79) 98 08/24/19 04:00 81 08/24/19 03:32 94 High Flow 50.0 100 08/24/19 00:00 50.0 100 08/24/19 00:00 77 08/24/19 00:00 Nasal Cannula 50.0 08/24/19 00:00 98.2 73 24 120/76 (91) 97 08/23/19 23:10 94 High Flow 50.0 100 08/23/19 20:00 50.0 100 08/23/19 20:00 97.9 82 24 109/78 (88) 92 08/23/19 20:00 Nasal Cannula 50.0 08/23/19 20:00 86 08/23/19 19:25 90 High Flow 50.0 100 08/23/19 19:25 84 20 90 High Flow 50.0 100 08/23/19 16:00 Nasal Cannula 40.0 08/23/19 16:00 40.0 100 08/23/19 15:52 98.6 78 18 110/67 (81) 95 08/23/19 15:14 91 High Flow 40.0 100 08/23/19 15:12 81 08/23/19 12:00 98.4 79 18 115/69 (84) 92 08/23/19 12:00 Nasal Cannula 40.0 08/23/19 12:00 40.0 100 08/23/19 11:30 76 08/23/19 10:44 93 High Flow 40.0 100 08/23/19 10:43 40.0 100 Height (Feet): 5 Height (Inches): 9.00 Weight (Pounds): 160 Respiratory/Chest: lungs clear Cardiovascular: normal rate, regular rhythm, no gallop/murmur Abdomen: soft, non tender Extremities: no edema Microbiology Date/Time Source Procedure Growth Status 08/21/19 15:05 Blood Blood Culture - Preliminary NO GROWTH AFTER 48 HOURS Resulted 08/21/19 14:50 Blood Blood Culture - Preliminary NO GROWTH AFTER 48 HOURS Resulted 08/21/19 14:10 Nasopharynx SARS-CoV-2 RdRp Gene Assay - Final Complete Laboratory Tests Test 08/24/19 03:30 White Blood Count 7.7 K/UL (4.8-10.8) Red Blood Count 3.52 M/UL (4.70-6.10) L Hemoglobin 13.0 G/DL (14.2-18.0) L Hematocrit 42.5 % (42.0-52.0) Mean Corpuscular Volume 121 FL (80-99) H Mean Corpuscular Hemoglobin 36.9 PG (27.0-31.0) H Mean Corpuscular Hemoglobin Concent 30.5 G/DL (32.0-36.0) L Red Cell Distribution Width 15.7 % (11.6-14.8) H Platelet Count 75 K/UL (150-450) L Mean Platelet Volume 12.4 FL (6.5-10.1) H Neutrophils (%) (Auto) % (45.0-75.0) Lymphocytes (%) (Auto) % (20.0-45.0) Monocytes (%) (Auto) % (1.0-10.0) Eosinophils (%) (Auto) % (0.0-3.0) Basophils (%) (Auto) % (0.0-2.0) Sodium Level 145 MMOL/L (136-145) Potassium Level 4.6 MMOL/L (3.5-5.1) Chloride Level 110 MMOL/L (98-107) H Carbon Dioxide Level 26 MMOL/L (21-32) Anion Gap 9 mmol/L (5-15) Blood Urea Nitrogen 26 mg/dL (7-18) H Creatinine 1.3 MG/DL (0.55-1.30) Estimat Glomerular Filtration Rate 52.0 mL/min (>60) Glucose Level 101 MG/DL (74-106) Calcium Level 8.5 MG/DL (8.5-10.1) Current Medications Medications (Trade) Dose Ordered Sig/July Route PRN Reason Start Time Stop Time Status Last Admin Dose Admin Ascorbic Acid (Vitamin C) 1,000 mg DAILY ORAL 08/23/19 09:00 09/22/19 08:59 08/24/19 09:54 Aspirin (Ecotrin) 81 mg DAILY ORAL 08/24/19 09:00 10/07/19 08:59 08/24/19 09:53 Ceftriaxone Sodium 1 gm/ Dextrose 55 ml @ 110 mls/hr Q24H IVPB 08/22/19 12:30 08/29/19 12:29 08/23/19 11:52 Cyanocobalamin (Vitamin B-12) 500 mcg DAILY ORAL 08/23/19 09:00 09/22/19 08:59 08/24/19 09:53 Docusate Sodium (Colace) 100 mg PRN ORAL 08/22/19 15:30 09/21/19 15:29 Dronabinol (Marinol) 2.5 mg BID ORAL 08/22/19 20:00 11/20/19 19:59 08/24/19 09:52 Enoxaparin Sodium (Lovenox) 70 mg Q12H SUBQ 08/24/19 00:00 11/22/19 00:00 08/23/19 23:53 Furosemide (Lasix) 40 mg EVERY 12 HOURS IV 08/22/19 21:00 09/20/19 20:59 08/24/19 09:52 Gabapentin (Neurontin) 300 mg THREE TIMES A DAY PRN ORAL For Pain 08/21/19 23:15 09/20/19 23:14 Pravastatin Sodium (Pravachol) 80 mg BEDTIME ORAL 08/22/19 21:00 09/21/19 20:59 08/23/19 22:05 Pregabalin (Lyrica) 100 mg BID ORAL 08/22/19 18:00 09/21/19 17:59 08/24/19 09:53 Kin Maxwell MD Aug 24, 2019 10:29
--- NOTE | 2019-08-24 10:40 | NUR ---
NURSE NOTES: I was called by PIYUSH Newton to check patient,not breathing,unable to take vital signs.I went immediately to check patient No spontaneous breathing noted No response to sternal stimulus No pulse noted Pupils fixed ,no response No breath sounds appreciated
--- NOTE | 2019-08-24 11:05 | NUR ---
RESPIRATORY NOTE: FIO2 on High-Flow nasal cannula device was titrated per MD order to keep O2 saturation above 90%. FIO2 is at 40%. Pt mejia change well. SpO2 is 100%. RN notified of pt condition.
--- NOTE | 2019-08-24 11:43 | Pulmonology Progress Note ---
Subjective ROS Limited/Unobtainable: Yes Interval Events: awake and responsive Constitutional: Reports: no symptoms HEENT: Repors: no symptoms Respiratory: Reports: no symptoms Cardiovascular: Reports: no symptoms Gastrointestinal/Abdominal: Reports: no symptoms Allergies: Coded Allergies: No Known Allergies (Unverified , 08/21/19) All Systems: reviewed and negative except above Objective Last 24 Hour Vital Signs Date Time Temp Pulse Resp B/P (MAP) Pulse Ox O2 Delivery O2 Flow Rate FiO2 08/24/19 11:05 100 High Flow 50.0 40 08/24/19 09:00 50.0 100 08/24/19 08:00 Nasal Cannula 50.0 08/24/19 08:00 97.7 78 18 120/66 (84) 92 08/24/19 07:21 80 08/24/19 07:12 94 High Flow 50.0 100 08/24/19 04:00 Nasal Cannula 50.0 08/24/19 04:00 50.0 100 08/24/19 04:00 98.4 80 24 108/65 (79) 98 08/24/19 04:00 81 08/24/19 03:32 94 High Flow 50.0 100 08/24/19 00:00 50.0 100 08/24/19 00:00 77 08/24/19 00:00 Nasal Cannula 50.0 08/24/19 00:00 98.2 73 24 120/76 (91) 97 08/23/19 23:10 94 High Flow 50.0 100 08/23/19 20:00 50.0 100 08/23/19 20:00 97.9 82 24 109/78 (88) 92 08/23/19 20:00 Nasal Cannula 50.0 08/23/19 20:00 86 08/23/19 19:25 90 High Flow 50.0 100 08/23/19 19:25 84 20 90 High Flow 50.0 100 08/23/19 16:00 Nasal Cannula 40.0 08/23/19 16:00 40.0 100 08/23/19 15:52 98.6 78 18 110/67 (81) 95 08/23/19 15:14 91 High Flow 40.0 100 08/23/19 15:12 81 08/23/19 12:00 98.4 79 18 115/69 (84) 92 08/23/19 12:00 Nasal Cannula 40.0 08/23/19 12:00 40.0 100 Intake and Output 08/23/19 08/24/19 19:00 07:00 Intake Total 460 ml Output Total 350 ml 400 ml Balance 110 ml -400 ml Intake Oral 350 ml IV Total 110 ml Output Urine Total 350 ml 400 ml General Appearance: no acute distress Respiratory: chest wall non-tender Cardiovascular: normal peripheral pulses Abdomen: normal bowel sounds Microbiology Date/Time Source Procedure Growth Status 08/21/19 15:05 Blood Blood Culture - Preliminary NO GROWTH AFTER 48 HOURS Resulted 08/21/19 14:50 Blood Blood Culture - Preliminary NO GROWTH AFTER 48 HOURS Resulted 08/21/19 14:10 Nasopharynx SARS-CoV-2 RdRp Gene Assay - Final Complete Laboratory Tests 08/24/19 03:30: White Blood Count 7.7, Red Blood Count 3.52L, Hemoglobin 13.0L, Hematocrit 42.5 , Mean Corpuscular Volume 121H, Mean Corpuscular Hemoglobin 36.9H, Mean Corpuscular Hemoglobin Concent 30.5L, Red Cell Distribution Width 15.7H, Platelet Count 75L, Mean Platelet Volume 12.4H, Neutrophils (%) (Auto) , Lymphocytes (%) (Auto) , Monocytes (%) (Auto) , Eosinophils (%) (Auto) , Basophils (%) (Auto) , Sodium Level 145, Potassium Level 4.6, Chloride Level 110H, Carbon Dioxide Level 26, Anion Gap 9, Blood Urea Nitrogen 26H, Creatinine 1.3, Estimat Glomerular Filtration Rate 52.0, Glucose Level 101, Calcium Level 8.5 Current Medications Medications (Trade) Dose Ordered Sig/July Route PRN Reason Start Time Stop Time Status Last Admin Dose Admin Ascorbic Acid (Vitamin C) 1,000 mg DAILY ORAL 08/23/19 09:00 09/22/19 08:59 08/24/19 09:54 Aspirin (Ecotrin) 81 mg DAILY ORAL 08/24/19 09:00 10/07/19 08:59 08/24/19 09:53 Ceftriaxone Sodium 1 gm/ Dextrose 55 ml @ 110 mls/hr Q24H IVPB 08/22/19 12:30 08/29/19 12:29 08/23/19 11:52 Cyanocobalamin (Vitamin B-12) 500 mcg DAILY ORAL 08/23/19 09:00 09/22/19 08:59 08/24/19 09:53 Docusate Sodium (Colace) 100 mg PRN ORAL 08/22/19 15:30 09/21/19 15:29 Dronabinol (Marinol) 2.5 mg BID ORAL 08/22/19 20:00 11/20/19 19:59 08/24/19 09:52 Enoxaparin Sodium (Lovenox) 70 mg Q12H SUBQ 08/24/19 00:00 11/22/19 00:00 08/23/19 23:53 Furosemide (Lasix) 40 mg EVERY 12 HOURS IV 08/22/19 21:00 09/20/19 20:59 08/24/19 09:52 Gabapentin (Neurontin) 300 mg THREE TIMES A DAY PRN ORAL For Pain 08/21/19 23:15 09/20/19 23:14 Pravastatin Sodium (Pravachol) 80 mg BEDTIME ORAL 08/22/19 21:00 09/21/19 20:59 08/23/19 22:05 Pregabalin (Lyrica) 100 mg BID ORAL 08/22/19 18:00 09/21/19 17:59 08/24/19 09:53 Assessment/Plan Assessment/Plan IMPRESSION: 1. Decompensated congestive heart failure. 2. DNR status. 3. Diabetes mellitus. 4. Respiratory failure. DISCUSSION: Continue medications. Diet as tolerated. Broad-spectrum antibiotics. Provide respiratory support with Hi flow o2. Will attempt to wean down o2 I will follow carefully. Wendy Mcdaniel Omar Syed MD Aug 24, 2019 11:43
--- NOTE | 2019-08-24 12:22 | NUR ---
NURSE NOTES: SAFETY AND OCCUPATIONAL HEALTH MANAGER called CN and RN that pt. appears to be pale looking and unresponsive. Called [employer].
--- NOTE | 2019-08-24 12:25 | NUR ---
NURSE NOTES: Called Dr. Lyles. and informed him pt. being unresponsive and unable to get pulse. said he will be here in 15mins.
[2019-08-24] MEDS: Enoxaparin 80mg Inj SUBQ SCH (12:28)
--- NOTE | 2019-08-24 12:28 | NUR ---
PRONOUNCEMENT: No Code. Called to pronounce patient. Absence of spontaneous respirations, no cardiac or breath sounds on auscultation. Pupils fixed and dilated. No carotid pulse or chest movement. Patient at 1228. DR notified PER . Family was notified at 1300 .
[2019-08-24] MEDS: cefTRIAXone 1 GM in D5W 55 ML IVPB SCH (12:30)
--- NOTE | 2019-08-24 12:30 | NUR ---
NURSE NOTES: Pt. at 12:28pm. Unable to obtained vitals. Dr. Lyles aware and seen the pt. Post mortem care rendered.
--- NOTE | 2019-08-24 13:00 | NUR ---
NURSE NOTES: Called Cj (conservator and nephew of pt) that pt. at 12:28pm. Dr. Lyles seen the pt.
--- NOTE | 2019-08-24 13:27 | General Progress Note ---
Assessment/Plan Problem List: (1) Respiratory failure ICD Codes: J96.90 - Respiratory failure, unspecified, unspecified whether with hypoxia or hypercapnia SNOMED: 567867413 (2) Troponin level elevated ICD Codes: R79.89 - Other specified abnormal findings of blood chemistry SNOMED: 658929982, 058705877, 011984936 (3) COPD (chronic obstructive pulmonary disease) ICD Codes: J44.9 - Chronic obstructive pulmonary disease, unspecified SNOMED: 47736351 Qualifiers: Qualified Codes: J44.9 - Chronic obstructive pulmonary disease, unspecified (4) Pneumonia ICD Codes: J18.9 - Pneumonia, unspecified organism SNOMED: 429744614 Qualifiers: Qualified Codes: J18.9 - Pneumonia, unspecified organism (5) CHF (congestive heart failure) ICD Codes: I50.9 - Heart failure, unspecified SNOMED: 46024033 Qualifiers: Qualified Codes: I50.9 - Heart failure, unspecified Status: unchanged Assessment/Plan: o2 pulm tx cardio f/u abx pt lethargic, dnr monitor Subjective Constitutional: Reports: weakness Allergies: Coded Allergies: No Known Allergies (Unverified , 08/21/19) All Systems: reviewed and negative except above Subjective o2nc calm Objective Last 24 Hour Vital Signs Date Time Temp Pulse Resp B/P (MAP) Pulse Ox O2 Delivery O2 Flow Rate FiO2 08/24/19 11:05 100 High Flow 50.0 40 08/24/19 09:00 50.0 100 08/24/19 08:00 Nasal Cannula 50.0 08/24/19 08:00 97.7 78 18 120/66 (84) 92 08/24/19 07:21 80 08/24/19 07:12 94 High Flow 50.0 100 08/24/19 04:00 Nasal Cannula 50.0 08/24/19 04:00 50.0 100 08/24/19 04:00 98.4 80 24 108/65 (79) 98 08/24/19 04:00 81 08/24/19 03:32 94 High Flow 50.0 100 08/24/19 00:00 50.0 100 08/24/19 00:00 77 08/24/19 00:00 Nasal Cannula 50.0 08/24/19 00:00 98.2 73 24 120/76 (91) 97 08/23/19 23:10 94 High Flow 50.0 100 08/23/19 20:00 50.0 100 08/23/19 20:00 97.9 82 24 109/78 (88) 92 08/23/19 20:00 Nasal Cannula 50.0 08/23/19 20:00 86 08/23/19 19:25 90 High Flow 50.0 100 08/23/19 19:25 84 20 90 High Flow 50.0 100 08/23/19 16:00 Nasal Cannula 40.0 08/23/19 16:00 40.0 100 08/23/19 15:52 98.6 78 18 110/67 (81) 95 08/23/19 15:14 91 High Flow 40.0 100 08/23/19 15:12 81 Intake and Output 08/23/19 08/24/19 19:00 07:00 Intake Total 460 ml Output Total 350 ml 400 ml Balance 110 ml -400 ml Intake Oral 350 ml IV Total 110 ml Output Urine Total 350 ml 400 ml Laboratory Tests 08/24/19 03:30: White Blood Count 7.7, Red Blood Count 3.52L, Hemoglobin 13.0L, Hematocrit 42.5 , Mean Corpuscular Volume 121H, Mean Corpuscular Hemoglobin 36.9H, Mean Corpuscular Hemoglobin Concent 30.5L, Red Cell Distribution Width 15.7H, Platelet Count 75L, Mean Platelet Volume 12.4H, Neutrophils (%) (Auto) , Lymphocytes (%) (Auto) , Monocytes (%) (Auto) , Eosinophils (%) (Auto) , Basophils (%) (Auto) , Sodium Level 145, Potassium Level 4.6, Chloride Level 110H, Carbon Dioxide Level 26, Anion Gap 9, Blood Urea Nitrogen 26H, Creatinine 1.3, Estimat Glomerular Filtration Rate 52.0, Glucose Level 101, Calcium Level 8.5 Height (Feet): 5 Height (Inches): 9.00 Weight (Pounds): 160 General Appearance: lethargic EENT: normal ENT inspection Neck: normal inspection Cardiovascular: normal rate, regular rhythm Respiratory/Chest: no respiratory distress, no accessory muscle use Extremities: normal inspection Skin: normal pigmentation Devon Lyles DO Aug 24, 2019 13:27
--- NOTE | 2019-08-24 13:55 | NUR ---
NURSE NOTES: Called [facility] [phone] and spoke with Melania and gave confirmation #[id number].
[2019-08-24] MEDS ORDERED: Enoxaparin 80mg Inj SUBQ SCH (14:00)
--- NOTE | 2019-08-24 14:08 | NUR ---
NURSE NOTES: Called Propeller Layout Worker and spoke to Lovil no NCC number given because it is a natural .
--- NOTE | 2019-08-24 16:12 | NUR ---
NURSE NOTES: Done inventory with supervisor tank house. With 2 ring and 1 necklace. Upper/lower dentures goes with the pt. Cj naik called and he said he will stop by on to rock picker belongings. Extrusion Line Operator made aware.
[2019-08-24] MEDS ORDERED: NS 275ml ONE (17:42)
--- NOTE | 2019-08-24 18:00 | NUR ---
NURSE NOTES: Body transported at [facility] [place].
--- NOTE | 2019-08-26 08:54 | Discharge Summary ---
Discharge Summary Discharge Summary _ SUMMARY DATE OF ADMISSION: 08/21/2019 DATE OF EXPIRATION: 08/24/2019 REASON FOR ADMISSION: 88 years old male with past medical history of COPD, diabetes mellitus, congestive heart failure, lung cancer, was brought from home for shortness of breath. Patient was hypoxic and lethargic. Patient required 100% nonrebreathing mask and was hypotensive. No fevers. . Laboratory work-up revealed elevated troponin 0.378. EKG revealed sinus rhythm , no acute ischemic changes. Chest x-ray revealed left-sided infiltrate. Laboratory work-up revealed no leukocytosis, stable hemoglobin, hematocrit, platelet count 108. ABG revealed minimal hypercapnia with PCO2 53.6. Pro BNP 75133. BUN 24, creatinine 1.2. Stable LFT. Lactic acid 1.3. Urinalysis revealed no evidence of urinary tract infection. In emergency department patient received empiric antibiotic , started on BiPAP Rapid COVID testing in ED was negative. Patient subsequently admitted for further management. CONSULTANTS: document clerk Dr. Benavidez pulmonary Dr. Lamas ID specialist Dr. Brannon Lange powder loader/oncologist Dr. Grimm [facility]: Patient admitted to stepdown and started on broad-spectrum antibiotics. Supplemental oxygen provided and titrated to keep pulse ox above 90%. Patient initially was on BiPAP and then was able to be weaned down to nasal cannula with a high flow. Pulmonary toilet provided. Patient was followed-up with the ABG . Echocardiogram demonstrated preserved ejection fraction of 55%. No evidence of wall motion abnormality to the extent visualized. Mild left ventricular hypertrophy. Right ventricular systolic pressure of 98 consistent with severe pulmonary hypertension. Troponin level were trending, remained low and flat. Aspirin and statin continued. Patient with evidence of fluid overload and lower extremity edema. Patient started on diuresis with Lasix with close monitoring of volumes and cardiorenal parameters. Patient initially was on DVT prophylaxis. Blood culture came back negative. Empiric antibiotic continued. Follow-up chest x-ray revealed pulmonary vascular congestion : atelectasis versus infiltrate in the left lung base and mildly hyperinflated lungs. Venous duplex bilateral lower extremity revealed acute DVT proximal left superficial femoral vein as well as SVT involving the greater saphenous vein extending to the common femoral vein margin. Patient started on Lovenox for treatment of acute DVT. Abdominal ultrasound demonstrated echogenic heterogeneous liver, likely reflecting underlying parenchymal liver disease with small amount of ascites. Gallbladder wall thickening , no distinct stone or sludge. Pancreas ,spleen and left kidney were mostly obscured. Aneurysm of the abdominal aorta. Patient with known history of lung cancer in the past. Stage was unknown. No intervention were planned. Platelet count was closely monitored . Hepatitis panel was negative. HIV nonreactive. Blood sugar was managed with metformin. Patient with a DNR/DNI status. Patient was condition was slowly deteriorating. Patient was pronounced at 12: 28 on 08/23. Cause of : cardiopulmonary arrest. FINAL DIAGNOSES: CHF exacerbation Acute DVT ( left proximal superficial femoral vein as well as SVT involving the greater saphenous vein extending to the common femoral vein margin) Pneumonia COPD Respiratory failure with hypoxia and hypercapnia Coronary artery disease with history of coronary artery bypass graft Elevated troponin Lung mass/nodules Diabetes mellitus Neuropathy Severe pulmonary hypertension Thrombocytopenia DNR status I have been assigned to dictate discharge summary for this account. I was not involved in the patient's management. Katelyn Medel NP Aug 26, 2019 08:54
== END 2019-08-24 17:43 | disposition expired | DRG 291 ==
LOC: EDBD 13:28 → EMR 14:10 → EDBEDREQ 15:45 → EDBEDREQSVC 16:24 → EDBEDREQ 16:24 → 2W 18:22
PROC: 5A09457 Assistance with Respiratory Ventilation, 24-96 Consecutive Hours, Continuous Positive Airway Pressure (ICD-10-PCS; principal; 2019-08-21)
DX: I11.0 Hypertensive heart disease with heart failure (principal); J18.9 Pneumonia, unspecified organism; J96.02 Acute respiratory failure with hypercapnia; J96.01 Acute respiratory failure with hypoxia; I82.412 Acute embolism and thrombosis of left femoral vein; I82.812 Embolism and thrombosis of superficial veins of left lower extremity; I50.33 Acute on chronic diastolic (congestive) heart failure; D64.9 Anemia, unspecified; D69.6 Thrombocytopenia, unspecified; I25.10 Atherosclerotic heart disease of native coronary artery without angina pectoris; E11.9 Type 2 diabetes mellitus without complications; G62.9 Polyneuropathy, unspecified; Z79.84 Long term (current) use of oral hypoglycemic drugs; Z79.82 Long term (current) use of aspirin; Z66 Do not resuscitate; J44.9 Chronic obstructive pulmonary disease, unspecified; I27.20 Pulmonary hypertension, unspecified; Z85.118 Personal history of other malignant neoplasm of bronchus and lung; I71.4 Abdominal aortic aneurysm, without rupture
CPT/HCPCS: 36415; 36600; 71045; 76700; 80048; 80053; 80061; 81003; 82550; 82803; 82962; 83605; 83735; 83880; 84100; 84484; 85007; 85025; 85610; 85730; 86703; 86705; 86709; 86803; 87040; 87340; 93306; 93970; 94640; 94660; 94664; 96365; 96367; 96375; 99291; J7030; U0002